=== PATIENT | female | born 1990 | race Caucasian/White ===

== ENCOUNTER → 2019-11-01 10:08 | Outpatient (CLI) | payer MEDICAID, SELFPAY ==
[2019-11-01 11:24] LABS: Basophils # 0.1 K/mm3 (0-0.2); Basophils % 0.7 % (0.1-2.0); Eosinophils # 0.2 K/mm3 (0.0-0.4); Eosinophils % 1.4 % (0.1-12.0); Hemoglobin 12.3 g/dL (12.2-16.2); Lymphocytes % 29.1 % (10-50); Mean Corpuscular HGB Conc 31.6 g/dL (31.8-35.4); Mean Corpuscular Hemoglobin 27.4 pg (27.0-31.2); Mean Corpuscular Volume 86.5 fl (81-99); Mean Platelet Volume 7.9 fl (7.4-10.4); Monocytes # 0.4 K/mm3 (0.1-1.0); Monocytes % 3.6 % (1.7-9.3); Neutrophils # 6.6 K/mm3 (1.8-7.8); Neutrophils % 65.1 % (37.0-80.0); Platelet Count 365 K/mm3 (142-424); Red Blood Count 4.51 M/mm3 (4.20-5.40); Red Cell Distribution Width 15.6 % (11.5-17.5); White Blood Count 10.2 K/mm3 (4.8-10.8)
[2019-11-01 11:33] LABS: Alanine Aminotransferase 16 U/L (12-78); Albumin Level 4.4 g/dl (3.5-5.0); Albumin/Globulin Ratio 1.6 (1.1-1.8); Alkaline Phosphatase 90 U/L (38-126); Anion Gap 10.6 mEq/L (5-15); Aspartate Amino Transferase 17 U/L (14-36); Bilirubin,Total 0.2 mg/dl (0.2-1.3); Blood Urea Nitrogen 12 mg/dl (7-17); Calcium 9.8 mg/dl (8.4-10.2); Carbon Dioxide 25 mmol/L (22.0-30.0); Chloride 107 mmol/L (98-107); Estimated Glomerular Filt Rate 100 ml/min (>60); GFR (African American) 121 ML/MIN (>60); Globulin 2.8 g/dL (1.3-3.2); Glucose 100 mg/dl (74-100); Potassium 4.6 mmoL/L (3.5-5.1); Sodium 138 mmol/L (136-145); Total Protein,Serum 7.2 g/dl (6.3-8.2)
[2019-11-01 12:04] LABS: Thyroid Stimulating Hormone 1.81 uIU/mL (0.465-4.68)
[2019-11-02 03:39] LABS: Iron 26 ug/dL (27-159); UIBC 329 ug/dL (131-425)
[2019-11-02 07:04] LABS: Iron Saturation 7 % (15-55)
[2019-11-02 08:46] LABS: Vitamin D 25 Hydroxy 17.4 ng/mL (30.0-100.0)
[2019-11-02 16:05] LABS: Vitamin B12 610 pg/mL (232-1245)
== END ==
PROVIDERS: Visit Provider Nurse Practitioner Psychiatric/Mental Health
DX: Z00.00 Encounter for general adult medical examination without abnormal findings (principal); E55.9 Vitamin D deficiency, unspecified; F32.9 Major depressive disorder, single episode, unspecified; F41.1 Generalized anxiety disorder
CPT/HCPCS: 36415; 80053; 82607; 82652; 83540; 83550; 84443; 85025

== ENCOUNTER → 2020-01-30 10:53 | Outpatient (CLI) | payer MEDICAID, SELFPAY ==
[2020-01-30 13:13] LABS: Free Thyroxine Index 2.1 ug/dL (5.93-13.13); T4 (Thyroxine) 7.4 ug/dl (5.53-11.0); Triiodothryronine (T3) Uptake 29 % (23.5-40.5)
[2020-01-31 05:38] LABS: Progesterone 7.1 ng/mL (.)
== END ==
PROVIDERS: Visit Provider Obstetrics & Gynecology
DX: Z01.419 Encounter for gynecological examination (general) (routine) without abnormal findings (principal); E04.9 Nontoxic goiter, unspecified
CPT/HCPCS: 36415; 84144; 84436; 84443; 84479

== ENCOUNTER 2020-04-03 19:08 | Emergency (ER) | payer MEDICAID, SELFPAY ==
[2020-04-03 19:31] VITALS: BP 136/85; PULSE 91; RESP 20; TEMP 36.8; O2SAT 98; BMI 34.7
--- NOTE | 2020-04-03 19:35 | HMH.EDUTC ---
[facility] [place] Clinical Impression: URI (upper respiratory infection) Qualifiers: URI type: unspecified URI Qualified Code(s): J06.9 - Acute upper respiratory infection, unspecified Disposition: Home, Self-Care Condition on Discharge: Good Instructions: Sore Throat Additional Instructions: *Monitor Temp, Over the counter Motrin or Tylenol as directed/as needed Tylenol every 4 hours and Motrin every 6 hours (as long as your family doctor has told you that you can take it) for fever or pain. and straight to ER if unable to lower temp less than 101.0 after medication given *Warm salt water gargles may help to soothe the throat *Throat Lozenges *Warm fluids like tea with honey may help to soothe the throat *Sleep elevated *Humidifier/Vaporizer Your throat swab was sent for culture. Those results are typically sent to your primary care. Be sure to follow up in 2-3 days with your family doctor/primary care physician if no improvement so they can review those result and treat if necessary. If you don?t have a primary care doctor, I recommend you get one but in the mean time, you will have to return to a walk in clinic Follow up IMMEDIATELY for new or worsening symptoms or no Noticeable improvement over the next 48-72 hours. 911 for difficulty breathing or swallowing Prescriptions: Azithromycin [Z-Noble 250mg Tab] 250 mg PO DIRECTED #6 tab Transmission Status: Pending to [facility] Referrals: Dwain Nye MD [Primary Care Provider] - As needed Time of Disposition: 19:47 Medical Decision Making - Raz Inquiry Pt receiving controlled substance: No Raz was queried for this patient: No Vital Signs: 04/03/20 19:31 Temperature 98.3 F Temperature Source Oral Pulse Rate [Radial] 91 H Respiratory Rate 20 Blood Pressure [Right Arm] 136/85 Blood Pressure Mean [Right Arm] 102 Blood Pressure Source [Right Arm] Automatic Cuff Blood Pressure Position [Right Arm] Sitting 02 Sat by Pulse Oximetry 98 Oxygen Delivery Method Room Air - Lab Data Lab results reviewed: Yes: I reviewed the patient's lab results. [facility] [place] - General Stated complaint: sore throat Time Seen by Provider: 04/03/20 19:35 Mode of Arrival: Ambulatory Source of Information: Patient Limitations: No Limitations Description of Symptoms (Recalled from Triage Doc. 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 States that for the last couple of days her throat has been hurting and continued to get worse so she came in to get it checked - Related Data Previous Rx's Medication Instructions Recorded aripiprazole 5 mg tablet 5 mg PO QHS #30 tab 03/18/20 vortioxetine 10 mg tablet 10 mg PO DAILY #30 tab 03/18/20 Azithromycin [Z-Noble 250mg Tab] 250 mg PO DIRECTED #6 tab 04/03/20 Allergies Allergy/AdvReac Type Severity Reaction Status Date / Time amoxicillin Allergy Verified 01/30/20 10:20 - Worker's Comp Is this a Worker's Comp case?: No [facility] History - Hepatitis A Screen Drug use history?: No High risk sexual behaviors?: No History of sexually transmitted infection?: No Currently employed?: No Childcare worker?: No Do you have indoor plumbing?: Yes Do you have electricity?: Yes Attestation statement:: This patient has been screened for Hepatitis A risk factors. I have reviewed the patient's past medical history: Yes Medical History: Reports:: Anxiety, Depression Other Surgeries: Yes: Appendectomy, Amputation: No Fractures: No Comment: app - Social History Smoking Status: Current lorena
[2020-04-03 19:49] LABS: UTC Strep Screen (Rapid) Negative (Negative)
[2020-04-03 19:52] VITALS: BP 136/85; PULSE 91; RESP 20; TEMP 36.8; O2SAT 98
== END 2020-04-03 19:53 | disposition home or self-care (01) ==
PROVIDERS: Emergency Provider Nurse Practitioner; PCP Emergency Medicine
DX: J06.9 Acute upper respiratory infection, unspecified (principal); F41.8 Other specified anxiety disorders; F17.210 Nicotine dependence, cigarettes, uncomplicated
CPT/HCPCS: 87880; 99201

== ENCOUNTER 2020-12-24 13:04 | Emergency (ER) | payer MEDICAID, SELFPAY ==
[2020-12-24 13:29] VITALS: RESP 16; TEMP 36.8; O2SAT 100; BMI 31.3
--- NOTE | 2020-12-24 13:37 | HMH.EDUTC ---
[facility] [place] Clinical Impression: Bronchitis Sinusitis Qualifiers: Sinusitis location: unspecified location Chronicity: acute Recurrence: non-recurrent Qualified Code(s): J01.90 - Acute sinusitis, unspecified Disposition: Xfer Inpatient Rehab Fac Condition on Discharge: Good Instructions: DI for Sinusitis, DI for Acute Bronchitis Additional Instructions: Encourage him to drink fluids Watch his temperature and give him tylenol or ibuprofen for pain/fever Give the antibiotic as prescribed. 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 GO TO THE EMERGENCY ROOM FOR ANY WORSENING OR LIFE THREATENING SYMPTOMS. Prescriptions: Brompheniramine/Pseudoephed/Dm [Bromfed Dm Cough Syrup] 5 ml PO Q6HP PRN #240 syrup PRN Reason: Cough Transmission Status: Received by [facility] predniSONE [Prednisone 20mg Tab] 20 mg PO BID 4 Days #8 tab Transmission Status: Received by [facility] Azithromycin [Z-Noble 250mg Tab*] 250 mg PO UD DOSE PK #6 tab Transmission Status: Received by [facility] Referrals: Dwain Nye MD [Primary Care Provider] - Forms: Work/School Release Time of Disposition: 14:01 Medical Decision Making - Medical Records Medical records reviewed: No: I reviewed the patient's medical records. - Raz Inquiry Pt receiving controlled substance: No Raz was queried for this patient: No Vital Signs: 12/24/20 13:29 12/24/20 14:07 Temperature 98.2 F 98.9 F Temperature Source Oral Oral Pulse Rate 95 H Respiratory Rate 16 14 Blood Pressure 112/55 L 02 Sat by Pulse Oximetry 100 Oxygen Delivery Method Room Air Room Air [facility] [place] HPI - General Stated complaint: cough,congestion,stuffy nose Time Seen by Provider: 12/24/20 13:43 Mode of Arrival: Ambulatory Source of Information: Patient Limitations: No Limitations Description of Symptoms (Recalled from Triage Doc. by RN): cough, stuffy nose, headache HEENT Symptoms (Recalled from RN notes): No Resp Symptoms (Recalled from RN notes): Yes Skin Symptoms (Recalled from RN notes): No MS Symptoms (Recalled from RN notes): No Functional Status (Recalled from RN notes): na - History of Present Illness Provider Complaint: She states that for the past 2 day she has had ear pain, sinus congestion and chest congestion. - Related Data Previous Rx's Medication Instructions Recorded fluoxetine 20 mg capsule 20 mg PO DAILY #30 cap 11/20/20 Azithromycin [Z-Noble 250mg Tab*] 250 mg PO UD DOSE PK #6 tab 12/24/20 Brompheniramine/Pseudoephed/Dm 5 ml PO Q6HP PRN #240 syrup 12/24/20 [Bromfed Dm Cough Syrup] predniSONE [Prednisone 20mg 20 mg PO BID 4 Days #8 tab 12/24/20 Tab] Allergies Allergy/AdvReac Type Severity Reaction Status Date / Time amoxicillin Allergy Verified 06/15/20 16:32 - Worker's Comp Is this a Worker's Comp case?: No [facility] History - Hepatitis A Screen Drug use history?: No High risk sexual behaviors?: No History of sexually transmitted infection?: No Currently employed?: No Childcare worker?: No Do you have indoor plumbing?: Yes Do you have electricity?: Yes Attestation statement:: This patient has been screened for Hepatitis A risk factors. I have reviewed the patient's past medical history: Yes Medical History: Reports:: Anxiety, Depression Other Surgeries: Yes: Appendectomy, Amputation: No Fractures: No Comment: 2004-appe - Social History Smoking Status: Current every day smoker Tobacco Type: cigarettes # Packs/Day (cigarettes): 1 Alcohol Intake: never Alcohol Intake Frequency:: holidays/special occasions only Substance Use Type: denies use, marijuana Occupational Status: employed Housing: house - Psychiatric History Pschychiatric History:: Reports:: Anxiety, Depression Family Hx:: Cancer, Diabetes, Heart Attack, Kidney Disease ROS Obtained: Yes All systems reviewed & no additional complaints - Constitutional Constitutional: Reports chills, Denies fever(s), Re
[2020-12-24 14:07] VITALS: BP 112/55; PULSE 95; RESP 14; TEMP 37.2; O2SAT 100
== END 2020-12-24 14:09 ==
PROVIDERS: Emergency Provider Nurse Practitioner Family; PCP Emergency Medicine
DX: J20.9 Acute bronchitis, unspecified (principal); F17.210 Nicotine dependence, cigarettes, uncomplicated; F41.8 Other specified anxiety disorders
CPT/HCPCS: 99202; G0463

== ENCOUNTER → 2021-01-15 13:49 | Outpatient (CLI) | payer MEDICAID, SELFPAY ==
[2021-01-15 13:56] LABS: Basophils % 0.5 % (0.1-2.0); Eosinophils # 0.1 K/mm3 (0.0-0.4); Eosinophils % 1.2 % (0.1-12.0); Hematocrit 38.3 % (37.0-47.0); Hemoglobin 12.4 g/dL (12.2-16.2); Lymphocytes # 2.3 K/mm3 (0.7-4.5); Lymphocytes % 34.6 % (10-50); Mean Corpuscular HGB Conc 32.2 g/dL (31.8-35.4); Mean Corpuscular Hemoglobin 29.1 pg (27.0-31.2); Mean Corpuscular Volume 90.5 fl (81-99); Mean Platelet Volume 9.3 fl (7.4-10.4); Monocytes # 0.3 K/mm3 (0.1-1.0); Neutrophils % 58.7 % (37.0-80.0); Platelet Count 328 K/mm3 (142-424); Red Blood Count 4.24 M/mm3 (4.20-5.40); Red Cell Distribution Width 13.9 % (11.5-17.5); White Blood Count 6.7 K/mm3 (4.8-10.8)
[2021-01-15 14:15] LABS: Alanine Aminotransferase 14 U/L (12-78); Albumin Level 4.5 g/dl (3.5-5.0); Albumin/Globulin Ratio 1.6 (1.1-1.8); Alkaline Phosphatase 97 U/L (38-126); Anion Gap 10.5 mEq/L (5-15); Aspartate Amino Transferase 17 U/L (14-36); Bilirubin,Total 0.3 mg/dl (0.2-1.3); Blood Urea Nitrogen 9 mg/dl (7-17); Calcium 9.6 mg/dl (8.4-10.2); Carbon Dioxide 24 mmol/L (22.0-30.0); Chloride 107 mmol/L (98-107); Chol/HDL Ratio 3.7 (1-3.5); Cholesterol 186 mg/dl (140-200); Estimated Glomerular Filt Rate 100 ml/min (>60); GFR (African American) 121 ML/MIN (>60); Globulin 2.8 g/dL (1.3-3.2); Glucose 103 mg/dl (74-100); HDL Cholesterol 50 mg/dl (40-60); Potassium 4.5 mmoL/L (3.5-5.1); Sodium 137 mmol/L (136-145); Total Protein,Serum 7.3 g/dl (6.3-8.2); Triglycerides 80 mg/dl (30-150); VLDL Cholesterol 16 mg/dL (0-40)
[2021-01-15 14:25] LABS: Direct LDL Cholesterol 105.31 mg/dL (100-129)
[2021-01-15 14:30] LABS: 25-OH Vitamin D, Total 26.1 ng/mL (30-100)
[2021-01-15 14:31] LABS: T4 (Thyroxine) 8.2 ug/dl (5.53-11.0)
== END ==
PROVIDERS: Visit Provider Nurse Practitioner Family
DX: R53.83 Other fatigue (principal); E66.9 Obesity, unspecified; E55.9 Vitamin D deficiency, unspecified; Z68.32 Body mass index [BMI] 32.0-32.9, adult
CPT/HCPCS: 80053; 80061; 82306; 84436; 84443; 85025

== ENCOUNTER 2021-07-28 09:05 | Emergency (ER) | payer MEDICAID, SELFPAY ==
[2021-07-28 09:20] VITALS: BP 143/86; PULSE 90; RESP 21; TEMP 37.1; O2SAT 98; BMI 35.5
--- NOTE | 2021-07-28 10:16 | HMH.EDUTC ---
[facility] – [place], [place] Disposition Clinical Impression: Shingles Qualifiers: Herpes zoster complications: without complications Qualified Code(s): B02.9 - Zoster without complications Disposition: Home, Self-Care Condition on Discharge: Good Instructions: Shingles, DI for Shingles, Acyclovir Additional Instructions: Take medication as prescribed Benadryl may help with itching CareNotes Shingles Aftercare Instructions Print Shingles Medically reviewed by [employer]. Last updated on Jul 12, 2021. Health Guide Disease Reference Care Notes Medication List Q & A Overview Aftercare Instructions [facility] Discharge Care Inpatient Care En Espa?ol Medicines: You may need any of the following: Antiviral medicine helps decrease symptoms and healing time. They may also decrease your risk of developing nerve pain. You will need to start taking them within 3 days of the start of symptoms to prevent nerve pain. Acetaminophen decreases pain and fever. It is available without a doctor's order. Ask how much to take and how often to take it. Follow directions. Read the labels of all other medicines you are using to see if they also contain acetaminophen, or ask your doctor or pharmacist. Acetaminophen can cause liver damage if not taken correctly. Do not use more than 4 grams (4,000 milligrams) total of acetaminophen in one day. NSAIDs , such as ibuprofen, help decrease swelling, pain, and fever. This medicine is available with or without a doctor's order. NSAIDs can cause stomach bleeding or kidney problems in certain people. If you take blood thinner medicine, always ask if NSAIDs are safe for you. Always read the medicine label and follow directions. Do not give these medicines to children under 6 months of age without direction from your child's healthcare provider. Self-care: Keep your rash clean and dry. Cover your rash with a bandage or clothing. Do not use bandages that stick to your skin. The sticky part may irritate your skin and make your rash last longer Wash your hands often Follow up with your Family Doctor Prescriptions: Acyclovir 800 mg PO 5XDAY 7 Days #35 tab Transmission Status: Pending to [facility] Referrals: Dwain Nye MD [Primary Care Provider] - As needed Forms: Work/School Release Time of Disposition: 10:30 Medical Decision Making - Raz Inquiry Pt receiving controlled substance: No Raz was queried for this patient: No Vital Signs: 11/17/21 09:20 Temperature 98.7 F Temperature Source Oral Pulse Rate [Right Brachial] 90 Respiratory Rate 21 Blood Pressure [Right Arm] 143/86 H Blood Pressure Mean [Right Arm] 105 Blood Pressure Source [Right Arm] Automatic Cuff Blood Pressure Position [Right Arm] Sitting 02 Sat by Pulse Oximetry 98 Oxygen Delivery Method Room Air [facility] [place], [place] HPI - General Stated complaint: possible shingles Time Seen by Provider: 07/28/21 10:16 Mode of Arrival: Ambulatory Source of Information: Patient Limitations: No Limitations Description of Symptoms (Recalled from Triage Doc. by RN): PATIENT C/O PAIN RASH TO BOTTOM SINCE MONDAY HEENT Symptoms (Recalled from RN notes): No Resp Symptoms (Recalled from RN notes): No Skin Symptoms (Recalled from RN notes): Yes MS Symptoms (Recalled from RN notes): No Functional Status (Recalled from RN notes): WNL - Related Data Home Medications Medication Instructions Recorded Confirmed Cholecalciferol (Vitamin D3) 1,250 mcg PO WEEKLY 07/28/21 07/28/21 [Dialyvite Vitamin D3 Max] Fluoxetine HCl [Prozac] 20 mg PO DAILY 07/28/21 07/28/21 Previous Rx's Medication Instructions Recorded Acyclovir 800 mg PO 5XDAY 7 Days #35 tab 07/28/21 Allergies Allergy/AdvReac Type Severity Reaction Status Date / Time amoxicillin Allergy Verified 05/13/21 10:14 - Worker's Comp Is this a Worker's Comp case?: No [facility] History - Hepatitis A Screen Drug use history?: No High risk sexual behaviors?:
[2021-07-28 10:36] VITALS: BP 143/86; PULSE 90; RESP 21; TEMP 37.1; O2SAT 98
== END 2021-07-28 10:45 | disposition home or self-care (01) ==
PROVIDERS: Emergency Provider Nurse Practitioner; PCP Emergency Medicine
DX: B02.9 Zoster without complications (principal); F17.210 Nicotine dependence, cigarettes, uncomplicated
CPT/HCPCS: 99202; G0463

== ENCOUNTER → 2021-08-11 07:49 | Outpatient (CLI) | payer MEDICAID, SELFPAY | PROVIDERS: Visit Provider Surgery | DX: Z20.822 Contact with and (suspected) exposure to COVID-19 (principal); Z01.812 Encounter for preprocedural laboratory examination | CPT/HCPCS: C9803; U0003; U0005 ==

== ENCOUNTER 2021-08-12 09:30 | Day surgery (SDC) | payer MEDICAID, SELFPAY ==
[2021-08-09 12:55] VITALS: BMI 35.5
[2021-08-12 10:00] VITALS: BP 127/59; PULSE 72; RESP 18; TEMP 36.8; O2SAT 97
--- NOTE | 2021-08-12 10:01 | HMH.ANESCL ---
[facility] Anesthesia Checklist - Patient Identification Patient Identification: Arm Band - Structural Data Admitted From: Home Planned Operative Procedure/s: EGD Consent for Planned Operative Procedure(s) Verified: Yes - NPO Status Verified Time NPO: 00:00 - Airway Assessment C-Spine Mobility Assessed: Yes TMJ Mobility Assessed: Yes Dentition: Good Dentition - Neurological Assessment Level of Consciousness: Awake Hx Seizures: No Numbness or tingling in extremities: No - Anesthesia Plan Anesthesia Risk discussed: Yes Anesthesia Plan: Verified ASA Class: II Anesthesia Type: MAC [facility] History I have reviewed the patient's past medical history: Yes Medical History: Reports:: Anxiety, Depression Denies:: Cancer, Diabetes Mellitus Type 1, Diabetes Mellitus Type 2, Internal Pacemaker, MRSA *Have you ever received a pneumonia vaccine?: No *Have you received a flu vaccine this season?: Yes Anesthesia experience/problems:: None Other Surgeries: Yes: Appendectomy, . No: Pacemaker Amputation: No Fractures: No - *Social History Last grade of school completed: High school graduate Smoking Status: Current every day smoker Tobacco Type: cigarettes # Packs/Day (cigarettes): 1 Alcohol Intake: never Alcohol Intake Frequency:: holidays/special occasions only Substance Use Type: denies use *Occupational Status:: other Housing: house Household Members: spouse *Travel in the last 8 weeks: None - Psychiatric History Pschychiatric History:: Reports:: Anxiety, Depression Family Hx:: Cancer, Diabetes, Heart Attack, Kidney Disease
[2021-08-12 10:47] LABS: HCG Qualitative, Serum Negative (Negative)
[2021-08-12 11:00] VITALS: O2SAT 97
[2021-08-12 11:17] VITALS: BP 106/52; PULSE 52; RESP 18; TEMP 36.8; O2SAT 90
--- NOTE | 2021-08-12 11:17 | HMH.SCOPE ---
- Procedure: Date: 08/12/21 Patient Date of :: 1990 Procedure Performed:: Esophagogastroduodenoscopy with biopsy Indications:: Heartburn/reflux Performing Provider:: Keaton Cox MD Referring Provider:: . Sedation:: Monitored anesthesia care Procedure:: After informed consent was obtained the patient was taken to the endoscopy suite. Sedation ensued after the patient was transferred to the left lateral decubitus position. Pulse, blood pressure, and oxygen saturation were monitored throughout the procedure. The endoscope was advanced beyond the duodenal bulb. Retroflexion within the gastric lumen was accomplished. The gastroscope was carefully removed and the patient was transferred to recovery in stable condition. Please see findings and specimens below for detail. Findings:: Gastroesophageal junction at 40 cm Mild patchy gastritis Specimens:: Antral biopsy Recommendations:: Follow-up pathology Proton pump inhibition Complications:: No immediate Estimated blood obtained (mL): 1
[2021-08-12 11:27] VITALS: BP 112/73; PULSE 52; RESP 18; O2SAT 94
[2021-08-12 11:37] VITALS: BP 130/59; PULSE 55; RESP 16; O2SAT 99
[2021-08-12 11:47] VITALS: BP 127/62; PULSE 58; RESP 16; O2SAT 100
== END 2021-08-12 11:47 | disposition home or self-care (01) ==
PROVIDERS: PCP Nurse Practitioner Family; Visit Provider Surgery
PROC: 0DJ08ZZ Inspection of Upper Intestinal Tract, Via Natural or Artificial Opening Endoscopic (ICD-10-PCS; CPT 43235; principal; 2021-08-12 13:30)
DX: K29.60 Other gastritis without bleeding (principal); F41.9 Anxiety disorder, unspecified; F32.A Depression, unspecified; Z72.0 Tobacco use; Z80.9 Family history of malignant neoplasm, unspecified; Z83.3 Family history of diabetes mellitus; Z82.3 Family history of stroke; Z84.1 Family history of disorders of kidney and ureter; Z88.1 Allergy status to other antibiotic agents; Z79.899 Other long term (current) drug therapy
CPT/HCPCS: 43239; 84703; J2704

== ENCOUNTER → 2021-09-20 09:44 | Outpatient (CLI) | payer MEDICAID, SELFPAY ==
--- NOTE | 2021-09-20 09:44 | NM_ITS ---
FINAL REPORT TECHNIQUE: Millicuries of technetium 99m sulfur colloid was ingested with eggs. CLINICAL HISTORY: ABD PAIN, NAUSEA, HX OF EATING DISORDER FINDINGS: GASTRIC EMPTYING SCAN Static images show normal emptying of the stomach into the small bowel. Based on the time activity curve, the estimated linear fit half-emptying time is 109 minutes. IMPRESSION: Gastric emptying time at the upper limits of normal. Reviewed, Interpreted and Dictated by Jose Murguia III, MD Transcribed by Robi Baeza Authenticated by Jose Murguia III, MD on 09/20/2021 04:00:53 PM [facility]
== END ==
PROVIDERS: PCP Nurse Practitioner Family; Visit Provider Surgery
DX: R13.10 Dysphagia, unspecified (principal)
CPT/HCPCS: 78264; A9541

== ENCOUNTER 2021-11-02 18:22 | Emergency (ER) | payer MEDICAID, SELFPAY ==
[2021-11-02 18:46] VITALS: BP 136/69; PULSE 67; RESP 18; TEMP 37.2; O2SAT 96; BMI 33.6
--- NOTE | 2021-11-02 18:52 | HMH.EDUTC ---
[facility] – [place] Disposition Clinical Impression: COVID-19, Asthma Otitis media Qualifiers: Otitis media type: suppurative Chronicity: acute Laterality: bilateral Recurrence: non-recurrent Spontaneous tympanic membrane rupture: without spontaneous rupture Qualified Code(s): H66.003 - Acute suppurative otitis media without spontaneous rupture of ear drum, bilateral Disposition: Home, Self-Care Condition on Discharge: Good Instructions: DI for COVID-19 (Suspected or Confirmed ), Preventing the Spread of Coronavirus Discharge Instructions Additional Instructions: Drink plenty of fluids. Take tylenol or ibuprofen for pain or fever. Take the medications as directed. Follow up with your regular doctor. GO TO THE ER FOR ANY WORSENING SYMPTOMS The cough medication (promethazine dm) will make you drowsy, so don't drive or operate heavy machinery after taking it. Prescriptions: Albuterol Sulfate [Albuterol Sulfate Hfa] 2 puffs IH Q6HP PRN 30 Days #1 each PRN Reason: Shortness Of Breath Transmission Status: Received by [facility] Promethazine/Dextromethorphan [Promethazine-Dm Syrup] 5 ml PO Q6HP PRN #240 ml PRN Reason: Cough Transmission Status: Received by [facility] predniSONE [Prednisone 20mg Tab] 20 mg PO BID 5 Days #10 tab Transmission Status: Received by [facility] Azithromycin [Z-Noble 250mg Tab*] 250 mg PO UD DOSE PK #6 tab Transmission Status: Received by [facility] Referrals: Polina Brantley APRN [Primary Care Provider] - Forms: Work/School Release Time of Disposition: 20:30 Medical Decision Making - Medical Records Medical records reviewed: No: I reviewed the patient's medical records. - Raz Inquiry Pt receiving controlled substance: No Vital Signs: 11/02/21 18:46 11/02/21 20:44 Temperature 99 F 99 F Temperature Source Oral Pulse Rate 67 Pulse Rate [Left] 67 Respiratory Rate 18 18 Blood Pressure 136/69 Blood Pressure [Right Arm] 136/69 Blood Pressure Mean [Right Arm] 91 02 Sat by Pulse Oximetry 96 - Lab Data Lab results reviewed: Yes: I reviewed the patient's lab results. Lab Results 11/02/21 18:55: Strep Scn Rapid Clinic Negative Orders (Tests/Meds): ORDERS Category Date Time Status Strep Screen Confirmation Stat Micro 11/02/21 18:55 Received [facility] [place] HPI - General Stated complaint: covid type symtoms/bilateral ear ache Time Seen by Provider: 11/02/21 18:52 - History of Present Illness Provider Complaint: She was diagnosed with covid-19 5 days ago. She has continued to feel bad. She denies significant shortness of breath, but she is having nonproductive cough, chest tightness, body ache and severe fatigue still. - Related Data Home Medications Medication Instructions Recorded Confirmed Cholecalciferol (Vitamin D3) 1,250 mcg PO DAILY 07/28/21 09/16/21 [Dialyvite Vitamin D3 Max] Lubiprostone [Amitiza] 24 mcg PO BID 08/12/21 09/16/21 prenat.vits,juan r,dja-ueeu-gfmxe 1 tab PO DAILY 09/16/21 09/16/21 Previous Rx's Medication Instructions Recorded buspirone 10 mg tablet 10 mg PO BID #60 tab 10/07/21 fluoxetine 20 mg capsule 20 mg PO DAILY #30 cap 10/07/21 lorazepam 0.5 mg tablet 0.5 mg PO BID PRN #7 tab 10/07/21 Albuterol Sulfate [Albuterol 2 puffs IH Q6HP PRN 30 Days #1 each 11/02/21 Sulfate Hfa] Azithromycin [Z-Noble 250mg Tab*] 250 mg PO UD DOSE PK #6 tab 11/02/21 Promethazine/Dextromethorphan 5 ml PO Q6HP PRN #240 ml 11/02/21 [Promethazine-Dm Syrup] predniSONE [Prednisone 20mg 20 mg PO BID 5 Days #10 tab 11/02/21 Tab] Allergies Allergy/AdvReac Type Severity Reaction Status Date / Time amoxicillin Allergy Verified 09/16/21 08:36 [facility] History - Hepatitis A Screen Attestation statement:: This patient has been screened for Hepatitis A risk factors. I have reviewed the patient's past medical history: Yes Medical History: Reports:: Anxiety, Depression, Heart Murmur Den
[2021-11-02 19:12] LABS: UTC Strep Screen (Rapid) Negative (Negative)
[2021-11-02 20:44] VITALS: BP 136/69; PULSE 67; RESP 18; TEMP 37.2
== END 2021-11-02 20:45 | disposition home or self-care (01) ==
PROVIDERS: Emergency Provider Nurse Practitioner Family; PCP Nurse Practitioner Family
DX: U07.1 COVID-19 (principal); H66.003 Acute suppurative otitis media without spontaneous rupture of ear drum, bilateral
CPT/HCPCS: 87880; 99202; G0463

== ENCOUNTER 2021-11-17 15:59 | Emergency (ER) | payer MEDICAID, SELFPAY ==
[2021-11-17 18:02] VITALS: BP 140/70; PULSE 110; RESP 19; TEMP 39.6; O2SAT 98; BMI 32.8
[2021-11-17 18:09] LABS: Adenovirus,PCR Not Detected (NotDetected); Bordetella Pertussis Not Detected (NotDetected); Chlamydophila Pneumoniae, PCR Not Detected (NotDetected); Coronavirus 19, PCR Not Detected (NotDetected); Coronavirus 229E Not Detected (NotDetected); Coronavirus NL63 Not Detected (NotDetected); Coronavirus OC43 Not Detected (NotDetected); Coronovirus HKU1,PCR Not Detected (NotDetected); Human Metapneumovirus Not Detected (NotDetected); Influenza A, PCR Not Detected (NotDetected); Influenza AH1, 2009 Not Detected (NotDetected); Influenza AH1, PCR Not Detected (NotDetected); Influenza AH3,PCR Not Detected (NotDetected); Influenza B, PCR Not Detected (NotDetected); Mycoplasma Pneumoniae, PCR Not Detected (NotDetected); Parainfluenza 1, PCR Not Detected (NotDetected); Parainfluenza 2, PCR Not Detected (NotDetected); Parainfluenza 3, PCR Not Detected (NotDetected); Parainfluenza 4, PCR Not Detected (NotDetected); Respiratory Syncytial Virus Not Detected (NotDetected); Rhinovirus/Enterovirus Not Detected (NotDetected)
[2021-11-17 18:14] LABS: UTC Strep Screen (Rapid) Positive (Negative)
--- NOTE | 2021-11-17 18:18 | HMH.EDUTC ---
[facility] [place]ression: Strep throat Disposition: Home, Self-Care Condition on Discharge: Good Instructions: Strep Throat, DI for Strep Throat Additional Instructions: Drink plenty of fluids. Take tylenol or ibuprofen for pain or fever. Take the medications as directed. Follow up with your regular doctor. GO TO THE ER FOR ANY WORSENING SYMPTOMS Throw your tooth brush away and get a new one. Prescriptions: Brompheniramine/Pseudoephed/Dm [Bromfed Dm Cough Syrup] 5 ml PO Q6HP PRN #240 ml PRN Reason: Cough Transmission Status: Received by [facility] Ondansetron [Zofran 4mg ODT] 4 mg PO Q8HP PRN #20 tab PRN Reason: Nausea Transmission Status: Received by [facility] methylPREDNISolone [Medrol] 4 mg PO DIRECTED 6 Days #21 packet Transmission Status: Received by [facility] Cefdinir [Omnicef 300mg Capsule] 300 mg PO BID #20 cap Transmission Status: Received by [facility] Referrals: Polina Brantley APRN [Primary Care Provider] - Forms: Work/School Release Time of Disposition: 18:38 Medical Decision Making - Medical Records Medical records reviewed: No: I reviewed the patient's medical records. - Raz Inquiry Pt receiving controlled substance: No Vital Signs: 11/17/21 18:02 11/17/21 18:54 Temperature 103.3 F H 100.9 F H Temperature Source Oral Pulse Rate 110 H Pulse Rate [Right Radial] 110 H Respiratory Rate 19 19 Blood Pressure 140/70 Blood Pressure [Right Arm] 140/70 Blood Pressure Mean [Right Arm] 93 Blood Pressure Source [Right Arm] Automatic Cuff Blood Pressure Position [Right Arm] Sitting 02 Sat by Pulse Oximetry 98 Oxygen Delivery Method Room Air - Lab Data Lab results reviewed: Yes: I reviewed the patient's lab results. Lab Results 11/17/21 17:20: Chlamy pneumoniae PCR Not detected, Adenovirus (PCR) Not detected, B. pertussis DNA (PCR) Not detected, Coronavirus OC43 (PCR) Not detected, Coronavirus HKU1 (PCR) Not detected, Coronavirus 229E (PCR) Not detected, SARS-CoV-2 (PCR) Not detected, Coronavirus NL63 (PCR) Not detected, Human Metapneumovir PCR Not detected, Influenza A (H1) PCR Not detected, Influ A (H1N1/09) PCR Not detected, Influenza A (H3) PCR Not detected, Influenza Type A (PCR) Not detected, Influenza Type B (PCR) Not detected, M. pneumoniae (PCR) Not detected, Parainfluenza 1 (PCR) Not detected, Parainfluenza 2 (PCR) Not detected, Parainfluenza 3 (PCR) Not detected, Parainfluenza 4 (PCR) Not detected, RSV (PCR) Not detected, Entero/Rhino (PCR) Not detected 11/17/21 18:05: Strep Scn Rapid Clinic Positive A Orders (Tests/Meds): ED MEDICATIONS Discontinued Medications Generic Name Dose Route Start Last Admin Trade Name Freq PRN Reason Stop Dose Admin Acetaminophen 650 mg 11/17/21 18:07 11/17/21 18:11 Acetaminophen 325mg Tab PO 11/17/21 18:08 650 mg ONCE ONE Administration Cefdinir 300 mg 11/18/21 18:31 Cefdinir 300mg Capsule PO 11/18/21 18:32 ONCE ONE Cefdinir 300 mg 11/18/21 18:47 Cefdinir 300mg Capsule PO 11/18/21 18:48 ONCE ONE Cefdinir 300 mg 11/17/21 18:50 11/17/21 18:51 Cefdinir 300mg Capsule PO 11/17/21 18:51 300 mg BID ONE Administration Ibuprofen 600 mg 11/17/21 18:07 11/17/21 18:11 Ibuprofen 600 Mg Tablet PO 11/17/21 18:08 600 mg ONCE ONE Administration Ondansetron HCl 8 mg 11/17/21 18:31 11/17/21 18:42 Ondansetron 4mg Odt SL 11/17/21 18:32 8 mg ONCE ONE Administration [facility] [place] - General Stated complaint: sore throat, dizzy, sob, h/a, congestion Time Seen by Provider: 11/17/21 18:18 Mode of Arrival: Ambulatory Source of Information: Patient Limitations: No Limitations Description of Symptoms (Recalled from Triage Doc. by RN): C/O sore throat, BRIGGS, runny nose, dizziness HEENT Symptoms (Recalled from RN notes): Yes (Sore throat, BRIGGS, runny nose) Resp Symptoms (Recalled from RN notes):
[2021-11-17 18:54] VITALS: BP 140/70; PULSE 110; RESP 19; TEMP 38.3; O2SAT 98
== END 2021-11-17 18:56 | disposition home or self-care (01) ==
PROVIDERS: Emergency Provider Nurse Practitioner Family; PCP Nurse Practitioner Family
DX: J02.0 Streptococcal pharyngitis (principal)
CPT/HCPCS: 87581; 87632; 87798; 87880; 99212; C9803; G0463; U0003; U0005

== ENCOUNTER 2022-02-16 17:15 | Emergency (ER) | payer MEDICAID, SELFPAY ==
[2022-02-16 17:54] VITALS: BP 113/57; PULSE 85; RESP 17; TEMP 36.8; O2SAT 98; BMI 33.6
--- NOTE | 2022-02-16 17:59 | HMH.EDUTC ---
[facility] [place] Disposition Clinical Impression: Viral syndrome, Gastroenteritis Disposition: Home, Self-Care Condition on Discharge: Good Instructions: DI for Viral Gastroenteritis -- Adult, DI for COVID-19 (Suspected or Confirmed ), Preventing the Spread of Coronavirus Discharge Instructions Additional Instructions: Drink plenty of fluids. Take tylenol or ibuprofen for pain or fever. Take the medications as directed. Follow up with your regular doctor. GO TO THE ER FOR ANY WORSENING SYMPTOMS Quarantine until you know the results of your covid-19 test. Notify your school or workplace of your results and follow their instructions regarding return to work/school. Prescriptions: Brompheniramine/Pseudoephed/Dm [Bromfed Dm Cough Syrup] 5 ml PO Q6HP PRN #240 ml PRN Reason: Cough Transmission Status: Received by [id number] Ondansetron [Zofran 4mg ODT] 4 mg PO Q8HP PRN #20 tab PRN Reason: Nausea Transmission Status: Received by [id number] Referrals: Polina Brantley APRN [Primary Care Provider] - Forms: Work/School Release Time of Disposition: 18:21 Medical Decision Making - Medical Records Medical records reviewed: No: I reviewed the patient's medical records. - Raz Inquiry Pt receiving controlled substance: No Vital Signs: 02/16/22 17:54 02/16/22 18:17 Temperature 98.2 F 98.2 F Temperature Source Oral Pulse Rate 85 Pulse Rate [Left Radial] 85 Respiratory Rate 17 17 Blood Pressure 113/57 L Blood Pressure [Right Arm] 113/57 L Blood Pressure Mean [Right Arm] 75 02 Sat by Pulse Oximetry 98 - Lab Data Lab results reviewed: Yes: I reviewed the patient's lab results. Lab Results 02/16/22 18:25: Chlamy pneumoniae PCR Not detected, Adenovirus (PCR) Not detected, B. pertussis DNA (PCR) Not detected, Coronavirus OC43 (PCR) Not detected, Coronavirus HKU1 (PCR) Not detected, Coronavirus 229E (PCR) Not detected, SARS-CoV-2 (PCR) Not detected, Coronavirus NL63 (PCR) Not detected, Human Metapneumovir PCR Not detected, Influenza A (H1) PCR Not detected, Influ A (H1N1/09) PCR Not detected, Influenza A (H3) PCR Not detected, Influenza Type A (PCR) Not detected, Influenza Type B (PCR) Not detected, M. pneumoniae (PCR) Not detected, Parainfluenza 1 (PCR) Not detected, Parainfluenza 2 (PCR) Not detected, Parainfluenza 3 (PCR) Not detected, Parainfluenza 4 (PCR) Not detected, RSV (PCR) Not detected, Entero/Rhino (PCR) Detected A [facility] [place] HPI - General Stated complaint: Diarrhea,Nausa, Head congetion Time Seen by Provider: 02/16/22 18:00 Description of Symptoms (Recalled from Triage Doc. by RN): patient comes in with complaints of head cold, nausea vomitting, diarrhea. patient states symptoms began yesterday HEENT Symptoms (Recalled from RN notes): Yes Resp Symptoms (Recalled from RN notes): No Skin Symptoms (Recalled from RN notes): No MS Symptoms (Recalled from RN notes): No Functional Status (Recalled from RN notes): wnl - History of Present Illness Provider Complaint: She states that since yesterday she has had n/v/d, scratchy sore throat, and sinus congestion. She denies any fever, but she has had body aches and chills. - Related Data Home Medications Medication Instructions Recorded Confirmed Cholecalciferol (Vitamin D3) 1,250 mcg PO DAILY 07/28/21 09/16/21 [Dialyvite Vitamin D3 Max] Lubiprostone [Amitiza] 24 mcg PO BID 08/12/21 09/16/21 prenat.vits,juan r,vua-ijvc-zodei 1 tab PO DAILY 09/16/21 09/16/21 Previous Rx's Medication Instructions Recorded Albuterol Sulfate [Albuterol 2 puffs IH Q6HP PRN 30 Days #1 each 11/02/21 Sulfate Hfa] buspirone 10 mg tablet 10 mg PO BID #60 tab 12/22/21 fluoxetine 20 mg capsule 20 mg PO DAILY #30 cap 12/22/21 Brompheniramine/Pseudoephed/Dm 5 ml PO Q6HP PRN #240 ml 02/16/22 [Bromfed Dm Cough Syrup] Ondansetron [Zofran 4mg ODT] 4 mg PO Q8HP PRN #20 tab 02/16/22 Allergies Allergy/AdvReac Type Severity React
[2022-02-16 18:17] VITALS: BP 113/57; PULSE 85; RESP 17; TEMP 36.8
[2022-02-16 18:45] LABS: Adenovirus,PCR Not Detected (NotDetected); Bordetella Pertussis Not Detected (NotDetected); Chlamydophila Pneumoniae, PCR Not Detected (NotDetected); Coronavirus 19, PCR Not Detected (NotDetected); Coronavirus 229E Not Detected (NotDetected); Coronavirus NL63 Not Detected (NotDetected); Coronavirus OC43 Not Detected (NotDetected); Coronovirus HKU1,PCR Not Detected (NotDetected); Human Metapneumovirus Not Detected (NotDetected); Influenza A, PCR Not Detected (NotDetected); Influenza AH1, 2009 Not Detected (NotDetected); Influenza AH1, PCR Not Detected (NotDetected); Influenza AH3,PCR Not Detected (NotDetected); Influenza B, PCR Not Detected (NotDetected); Mycoplasma Pneumoniae, PCR Not Detected (NotDetected); Parainfluenza 1, PCR Not Detected (NotDetected); Parainfluenza 2, PCR Not Detected (NotDetected); Parainfluenza 3, PCR Not Detected (NotDetected); Parainfluenza 4, PCR Not Detected (NotDetected); Respiratory Syncytial Virus Not Detected (NotDetected)
[2022-02-16 20:18] LABS: Rhinovirus/Enterovirus Detected (NotDetected)
== END 2022-02-16 18:39 | disposition home or self-care (01) ==
PROVIDERS: Emergency Provider Nurse Practitioner Family; PCP Nurse Practitioner Family
DX: A08.4 Viral intestinal infection, unspecified (principal); R09.81 Nasal congestion; F17.210 Nicotine dependence, cigarettes, uncomplicated
CPT/HCPCS: 87581; 87632; 87798; 99212; C9803; G0463; U0003; U0005

== ENCOUNTER → 2022-04-04 12:54 | Outpatient (CLI) | payer MEDICAID, SELFPAY ==
[2022-04-04 13:43] LABS: HCG,Quantitative 4508 mIU/ml (0-5.42)
== END ==
PROVIDERS: PCP Nurse Practitioner Family; Visit Provider Obstetrics & Gynecology
DX: N92.6 Irregular menstruation, unspecified (principal)
CPT/HCPCS: 36415; 84702

== ENCOUNTER → 2022-04-06 07:11 | Outpatient (CLI) | payer MEDICAID, SELFPAY ==
[2022-04-06 08:33] LABS: HCG,Quantitative 7544 mIU/ml (0-5.42)
== END ==
PROVIDERS: PCP Nurse Practitioner Family; Visit Provider Obstetrics & Gynecology
DX: N92.6 Irregular menstruation, unspecified (principal)
CPT/HCPCS: 36415; 84702

== ENCOUNTER 2022-04-18 18:59 | Emergency (ER) | payer MEDICAID, SELFPAY ==
--- NOTE | 2022-04-18 19:18 | ECG_ITS ---
APPROVED REPORT Exam: Resting ECG HR:83 bpm ECG Measurements Heart Rate 83 AXES DC 134 P -24 QRSd 88 QRS 14 QT 332 T 37 QTc 372 Conclusion SINUS RHYTHM NORMAL ECG UNCONFIRMED REPORT Electronically signed by : Jeremy Godwin MD 04/19/2022 19:53:33
[2022-04-18 19:38] LABS: Microscopic, Urine URINE MICROSCOPIC (MICROSCOPIC)
[2022-04-18 19:39] LABS: Appearance,Urine SL CLOUDY (Clear); Bilirubin,Urine Negative (Negative); Blood, Urine Negative (Negative); Color,Urine YELLOW (Yellow); Glucose,Urine (UA) Negative (Negative); Ketones,Urine Negative (Negative); Leukocyte Esterase,Urine Negative (Negative); Nitrate,Urine Negative (Negative); PH,Urine 6.5 (5.0-8.5); Protein,Urine Negative (Negative); Specific Gravity, Urine 1.015 (1.005-1.030); Urobilinogen,Urine 0.2 EU/dl (0.2)
[2022-04-18 19:43] LABS: Basophils # 0.1 K/mm3 (0-0.2); Basophils % 0.7 % (0.1-2.0); Eosinophils # 0.2 K/mm3 (0.0-0.4); Eosinophils % 1.3 % (0.1-12.0); Hematocrit 37.8 % (37.0-47.0); Hemoglobin 11.9 g/dL (12.2-16.2); Lymphocytes # 3.6 K/mm3 (0.7-4.5); Mean Corpuscular HGB Conc 31.6 g/dL (31.8-35.4); Mean Corpuscular Hemoglobin 28.9 pg (27.0-31.2); Mean Corpuscular Volume 91.6 fl (81-99); Mean Platelet Volume 8.2 fl (7.4-10.4); Monocytes # 0.6 K/mm3 (0.1-1.0); Monocytes % 4.6 % (1.7-9.3); Neutrophils # 8.4 K/mm3 (1.8-7.8); Neutrophils % 65.4 % (37.0-80.0); Platelet Count 332 K/mm3 (142-424); Red Blood Count 4.13 M/mm3 (4.20-5.40); Red Cell Distribution Width 14.7 % (11.5-17.5); White Blood Count 12.8 K/mm3 (4.8-10.8)
[2022-04-18 19:44] VITALS: BP 123/83; PULSE 86; RESP 16; TEMP 36.8; O2SAT 96; BMI 36.3
--- NOTE | 2022-04-18 19:51 | HMH.EDGENADL ---
ED Disposition Condition on Discharge: Good - Critical Care Critical Care Time: No <ChrisjoselynVincent smith - Last Filed: 04/18/22 19:51> <Dwain Nye - Last Filed: 04/18/22 20:53> Clinical Impression: Palpitations Qualifiers: Weeks of gestation: 8 weeks Qualified Code(s): Z3A.08 - 8 weeks gestation of Disposition: Home, Self-Care Instructions: DI for Palpitations Additional Instructions: call ob this week Referrals: Polina Brantley APRN [Primary Care Provider] - Arpan Irby MD [Staff Physician] - Attestation: On 04/18/22, the high probability of a clinically significant, sudden or life threatening deterioration of the following system(s) required my full and direct attention, intervention and personal management. The time I documented below is in addition to time spent performing reported procedures but includes the following listed in this critical care notation. Medical Decision Making - Medical Records Medical records reviewed: Yes: I reviewed the patient's medical records. - Raz Inquiry Pt receiving controlled substance: No - Lab Data Result diagrams: 04/18/22 19:23 - ECG Data Tracing #1 I reviewed this ECG and interpreted as documented below: ECG initial impression date: 04/18/22 ECG initial impression time: 19:18 ECG normal with no acute: arrhythmias, ischemia, conduction abnormalities, chamber hypertrophy Normal Sinus Rhythm: Yes <ChrisjoselynVincent smith - Last Filed: 04/18/22 19:51> - Lab Data Lab results reviewed: Yes: I reviewed the patient's lab results. Result diagrams: 04/18/22 19:23 04/18/22 19:23 <Dwain Nye - Last Filed: 04/18/22 20:53> Vital Signs: 04/18/22 19:44 Temperature 98.2 F Temperature Source Oral Pulse Rate [Apical] 86 Respiratory Rate 16 Blood Pressure [Right Arm] 123/83 Blood Pressure Mean [Right Arm] 96 Blood Pressure Source [Right Arm] Automatic Cuff Blood Pressure Position [Right Arm] Sitting 02 Sat by Pulse Oximetry 96 Oxygen Delivery Method Room Air - Lab Data Lab Results 04/18/22 19:23: WBC 12.8 H, RBC 4.13 L, Hgb 11.9 L, Hct 37.8, MCV 91.6, MCH 28.9, MCHC 31.6 L, RDW 14.7, Plt Count 332, MPV 8.2, Neut % (Auto) 65.4, Lymph % (Auto) 28.0, [place] % (Auto) 4.6, Eos % (Auto) 1.3, Baso % (Auto) 0.7, Neut # (Auto) 8.4 H, Lymph # (Auto) 3.6, [place] # (Auto) 0.6, Eos # (Auto) 0.2, Baso # (Auto) 0.1 04/18/22 19:23: Sodium 135 L, Potassium 3.6, Chloride 106, Carbon Dioxide 21 L, Anion Gap 11.6, BUN 7, Creatinine 0.50 L, Estimated Creat Clear 267, Estimated GFR 146, Est GFR ( Amer) 177, Glucose 108 H, Calcium 8.9, Total Bilirubin < 0.1 L, AST 24, ALT 25, Alkaline Phosphatase 89, Troponin I < 0.01, Total Protein 6.9, Albumin 3.9, Globulin 3.0, Albumin/Globulin Ratio 1.3, Lipase 34, HCG, Quant [id number] H 04/18/22 19:28: Urine Color Yellow, Urine Appearance Sl cloudy, Urine pH 6.5, Ur Specific [place] 1.015, Urine Protein Negative, Urine Glucose (UA) Negative, Urine Ketones Negative, Urine Blood Negative, Urine Nitrate Negative, Urine Bilirubin Negative, Urine Urobilinogen 0.2, Ur Leukocyte Esterase Negative, Urine RBC Occasional, Urine WBC 3-5, Ur Squamous Epith Cells 10-20, Urine Bacteria 4+ Orders (Tests/Meds): ED MEDICATIONS Generic Name Dose Route Start Last Admin Trade Name Freq PRN Reason Stop Dose Admin Sodium Chloride 1,000 mls @ 999 mls/hr 04/18/22 19:15 04/18/22 19:50 Sod Chlor 0.9% 1000ml Bag IV 04/18/22 20:15 999 mls/hr .Q1H1M LYNN Administration Discontinued Medications Generic Name Dose Route Start Last Admin Trade Name Freq PRN Reason Stop Dose Admin Diphenhydramine HCl 25 mg 04/18/22 19:13 04/18/22 19:50 Diphenhydramine 50mg/Ml Vial IV 04/18/22 19:14 25 mg ONCE ONE Administration ORDERS Category Date Time Status Rapid PCR Covid and Flu A/B Stat Lab 04/18/22 20:36 Ordered T4 (Thyroxine) Stat Lab 04/18/22 19:23 Received Thyroid Stimulating Hormone Stat Lab 0
[2022-04-18 19:55] LABS: Alanine Aminotransferase 25 U/L (12-78); Albumin Level 3.9 g/dl (3.5-5.0); Albumin/Globulin Ratio 1.3 (1.1-1.8); Alkaline Phosphatase 89 U/L (38-126); Anion Gap 11.6 mEq/L (5-15); Aspartate Amino Transferase 24 U/L (14-36); Blood Urea Nitrogen 7 mg/dl (7-17); Calcium 8.9 mg/dl (8.4-10.2); Carbon Dioxide 21 mmol/L (22.0-30.0); Chloride 106 mmol/L (98-107); Creatinine Clearance Estimated 267 mL/min (50-200); Estimated Glomerular Filt Rate 146 ml/min (>60); GFR (African American) 177 ML/MIN (>60); Glucose 108 mg/dl (74-100); Lipase 34 U/L (23-300); Potassium 3.6 mmoL/L (3.5-5.1); Sodium 135 mmol/L (136-145); Total Protein,Serum 6.9 g/dl (6.3-8.2)
[2022-04-18 19:57] LABS: Bacteria,Urine 4+ /lpf; RBC,Urine Occasional #/hpf (0-3)
[2022-04-18 19:58] LABS: Bilirubin,Total < 0.1 mg/dl (0.2-1.3)
[2022-04-18 20:10] LABS: Troponin I < 0.01 ng/ml (0.00-0.034)
[2022-04-18 20:53] VITALS: BP 120/80; PULSE 82; RESP 18; TEMP 36.8; O2SAT 99
[2022-04-18 21:18] LABS: T4 (Thyroxine) 10.2 ug/dl (5.53-11.0)
[2022-04-18 21:30] LABS: Troponin I < 0.01 ng/ml (0.00-0.034)
[2022-04-18 21:32] LABS: Thyroid Stimulating Hormone 3.79 uIU/mL (0.465-4.68)
[2022-04-18 22:52] LABS: Coronavirus 19, PCR Not Detected (NotDetected); Influenza A, PCR Not Detected (NotDetected); Influenza B, PCR Not Detected (NotDetected)
== END 2022-04-18 21:42 | disposition home or self-care (01) ==
PROVIDERS: Emergency Medicine; Emergency Provider Emergency Medicine; PCP Nurse Practitioner Family
DX: O99.419 Diseases of the circulatory system complicating pregnancy, unspecified trimester (principal); R00.2 Palpitations; O99.411 Diseases of the circulatory system complicating pregnancy, first trimester; I49.8 Other specified cardiac arrhythmias; O21.9 Vomiting of pregnancy, unspecified; O26.811 Pregnancy related exhaustion and fatigue, first trimester; O99.340 Other mental disorders complicating pregnancy, unspecified trimester; F32.A Depression, unspecified; F41.9 Anxiety disorder, unspecified; O99.331 Smoking (tobacco) complicating pregnancy, first trimester; F17.210 Nicotine dependence, cigarettes, uncomplicated; Z88.0 Allergy status to penicillin; Z88.1 Allergy status to other antibiotic agents; Z88.3 Allergy status to other anti-infective agents; Z3A.08 8 weeks gestation of pregnancy; Z82.49 Family history of ischemic heart disease and other diseases of the circulatory system; Z83.3 Family history of diabetes mellitus; Z84.1 Family history of disorders of kidney and ureter
CPT/HCPCS: 80053; 81001; 83690; 84436; 84443; 84484; 84702; 85025; 87086; 93005; 93225; 93226; 96361; 96374; 99285; C9803; U0003; U0005

== ENCOUNTER → 2022-04-27 12:53 | Outpatient (CLI) | payer MEDICAID, SELFPAY ==
--- NOTE | 2022-04-27 12:58 | US_ITS ---
FINAL REPORT CLINICAL HISTORY: for dates FINDINGS: Sonographic images of the pelvis were obtained. A single, living intrauterine is noted. A yolk sac is present and measures [address] to rump length measures 20 mm which corresponds to 8 weeks 4 days gestation. Heartbeat is identified and measures 165 beats per minute. The right ovary is within normal limits. The left ovary is within normal limits. IMPRESSION: Single, living, intrauterine gestation with 8 weeks 4 days gestational age. Reviewed, Interpreted and Dictated by Jose Murguia III, MD Transcribed by Marie Blake Authenticated and . [facility]
[2022-04-27 14:05] LABS: Basophils # 0.1 K/mm3 (0-0.2); Basophils % 0.5 % (0.1-2.0); Eosinophils # 0.1 K/mm3 (0.0-0.4); Eosinophils % 0.8 % (0.1-12.0); Hematocrit 37.6 % (37.0-47.0); Hemoglobin 11.7 g/dL (12.2-16.2); Lymphocytes # 2.7 K/mm3 (0.7-4.5); Lymphocytes % 22.2 % (10-50); Mean Corpuscular Hemoglobin 28.5 pg (27.0-31.2); Mean Corpuscular Volume 91.9 fl (81-99); Mean Platelet Volume 8.4 fl (7.4-10.4); Monocytes # 0.7 K/mm3 (0.1-1.0); Monocytes % 5.8 % (1.7-9.3); Neutrophils # 8.5 K/mm3 (1.8-7.8); Neutrophils % 70.6 % (37.0-80.0); Platelet Count 348 K/mm3 (142-424); Red Blood Count 4.09 M/mm3 (4.20-5.40); Red Cell Distribution Width 14.9 % (11.5-17.5); White Blood Count 12.1 K/mm3 (4.8-10.8)
[2022-04-28 06:12] LABS: HIV Screen 4th Generation wRfx Non Reactive (Non Reactive)
[2022-04-28 07:14] LABS: Hepatitis B Surface Antigen Negative (Negative); Hepatitis C Antibody <0.1 s/co ratio (0.0-0.9)
[2022-04-28 11:12] LABS: Rapid Plasma Reagin Ab Titer Non Reactive (NonRea<1:1)
== END ==
PROVIDERS: PCP Nurse Practitioner Family; Visit Provider Nurse Practitioner Obstetrics & Gynecology
DX: Z34.90 Encounter for supervision of normal pregnancy, unspecified, unspecified trimester (principal)
CPT/HCPCS: 36415; 76801; 85025; 86592; 86703; 86762; 86850; 87340; 87380; G0432

== ENCOUNTER 2022-06-30 18:00 | Emergency (ER) | payer MEDICAID, SELFPAY ==
[2022-06-30 18:50] VITALS: BP 131/86; PULSE 101; RESP 18; TEMP 36.6; O2SAT 99; BMI 34.9
--- NOTE | 2022-06-30 19:08 | EXP.UTC ---
Discharge Plan Disposition Patient Disposition: Home, Self-Care Condition: Good Prescriptions Prescriptions: No Action prenat.vits,juan r,vbo-rivd-fulcb Tablet 1 tab PO DAILY fluoxetine 20 mg capsule 20 mg PO DAILY Qty: 30 1RF ondansetron 4 mg tablet,disintegrating 4 mg PO Q6H PRN (Reason: nausea and vomiting) Qty: 20 2RF ondansetron 4 MG tablet,disintegrating 4 mg PO Q8HP PRN (Reason: Nausea) Qty: 20 0RF buspirone 10 MG tablet 20 mg PO BID Referrals Follow up/Referrals: Polina Brantley APRN [Primary Care Provider] - See instructions Activity Restrictions/Add. Instructions Additional Instructions/Restrictions: Discuss with your OB what you can take while and make sure to discuss with pharmacist *Monitor Temp, Over the counter Motrin or Tylenol as directed/as needed Tylenol every 4 hours and Motrin every 6 hours (as long as your family doctor has told you that you can take it) for fever or pain. and straight to ER if unable to lower temp less than 101.0 after medication given *Warm salt water gargles may help to soothe the throat *Throat Lozenges? *Warm fluids like tea with honey may help to soothe the throat? *Sleep elevated *Humidifier/Vaporizer Your throat swab was sent for culture. Those results are typically sent to your primary care. Be sure to follow up in 2-3 days with your family doctor/primary care physician if no improvement so they can review those result and treat if necessary. If you don?t have a primary care doctor, I recommend you get one but in the mean time, you will have to return to a walk in clinic Follow up IMMEDIATELY for new or worsening symptoms or no Noticeable improvement over the next 48-72 hours. 911 for difficulty breathing or swallowing You were tested for today for COVID19 your test result should be back in the next 24-48 hours, you may check your results on the [facility] [employer] Health Portal Clinical Impressions Clinical Impression: Viral upper respiratory tract infection with cough Stand Alone Forms Stand Alone Forms: Work/School Release Instructions Patient Instructions: Cough, DI for Viral Upper Respiratory Infection -- Adult Discharge ED Provider: Vaishali Cortes [facility] [place] HPI General Stated complaint: 18 WK Preg cough congestion sore throat Mode of Arrival: Ambulatory Source of Information: Patient Limitations: No Limitations Time Seen by Provider: 06/30/22 19:08 Description of Symptoms (Recalled from Triage Doc. by RN): pt currently pregnany 17.5 weeks. pt comes in with c/o sore throat, headache, runny nose, cough ongoing for 3 days HEENT Symptoms (Recalled from RN notes): Yes Resp Symptoms (Recalled from RN notes): Yes Skin Symptoms (Recalled from RN notes): No MS Symptoms (Recalled from RN notes): No Functional Status (Recalled from RN notes): n/a History of Present Illness Provider Complaint: Patient state that she is 18wks OB States that she has been having runny nose cough and sore throat for about 3 days States that son is having same symptoms so she came in to get checked Related Data Home Medications Medication Instructions Recorded Confirmed prenat.vits,juan r,ehb-kame-axnzx 1 tab PO DAILY Supplement 09/16/21 06/30/22 buspirone 10 mg tablet 20 mg PO BID Anxiety 04/18/22 06/30/22 Previous Rx's Medication Instructions Recorded ondansetron 4 mg disintegrating 4 mg PO Q8HP PRN Nausea #20 tabs 02/16/22 tablet fluoxetine 20 mg capsule 20 mg PO DAILY Depression #30 caps 04/20/22 ondansetron 4 mg disintegrating 4 mg PO Q6H PRN nausea and 05/31/22 tablet vomiting #20 tabs Allergies Allergy/AdvReac Type Severity Reaction Status Date / Time amoxicillin Allergy Verified 06/30/22 18:58 Worker's Comp Is this a Worker's Comp case?: No [facility] Medical History (Updated 06/30/22 @ 19:15 by Vaishali Cortes, JOCELYN) Screening for genetic disease carrier status Surgical History (Updated 06/14/22 @ 14:04 by
[2022-06-30 19:11] LABS: UTC Strep Screen (Rapid) Negative (Negative)
[2022-06-30 19:23] LABS: Adenovirus,PCR Not Detected (NotDetected); Bordetella Pertussis Not Detected (NotDetected); Chlamydophila Pneumoniae, PCR Not Detected (NotDetected); Coronavirus 19, PCR Not Detected (NotDetected); Coronavirus 229E Not Detected (NotDetected); Coronavirus NL63 Not Detected (NotDetected); Coronavirus OC43 Not Detected (NotDetected); Coronovirus HKU1,PCR Not Detected (NotDetected); Human Metapneumovirus Not Detected (NotDetected); Influenza A, PCR Not Detected (NotDetected); Influenza AH1, 2009 Not Detected (NotDetected); Influenza AH1, PCR Not Detected (NotDetected); Influenza AH3,PCR Not Detected (NotDetected); Influenza B, PCR Not Detected (NotDetected); Mycoplasma Pneumoniae, PCR Not Detected (NotDetected); Parainfluenza 1, PCR Not Detected (NotDetected); Parainfluenza 2, PCR Not Detected (NotDetected); Parainfluenza 3, PCR Not Detected (NotDetected); Parainfluenza 4, PCR Not Detected (NotDetected); Respiratory Syncytial Virus Not Detected (NotDetected)
[2022-06-30 19:30] VITALS: BP 131/86; PULSE 101; RESP 18; TEMP 36.6
[2022-06-30 23:36] LABS: Rhinovirus/Enterovirus Detected (NotDetected)
== END 2022-06-30 19:53 | disposition home or self-care (01) ==
PROVIDERS: Emergency Provider Nurse Practitioner; PCP Nurse Practitioner Family
DX: J06.9 Acute upper respiratory infection, unspecified (principal)
CPT/HCPCS: 87581; 87632; 87798; 87880; 99212; C9803; G0463; U0003; U0005

== ENCOUNTER → 2022-07-27 14:47 | Outpatient (CLI) | payer MEDICAID, SELFPAY ==
--- NOTE | 2022-07-27 14:47 | US_ITS ---
FINAL REPORT CLINICAL HISTORY: 20 week anatomy scan FINDINGS: US PREG /MATERNAL >14WKS ODAYS There is a single live intrauterine gestation. Presentation is breech. The cervix is closed and measures 4.3 cm. Placenta is anterior, grade 1. Cardiac activity is confirmed at 147 bpm. The fetus is active. Gross anatomy is unremarkable. Three-vessel cord with satisfactory umbilical cord insertion. Four-chamber heart is noted. AMNIOTIC FLUID: Appropriate amount. MEASUREMENTS: ULTRASOUND AGE: 20 weeks 6 days. GESTATION AGE: 21 weeks 4 days. ESTIMATED WEIGHT: 411 g GROWTH PERCENTILE: 29% LMP percentile BPD: 4.6 cm corresponding with 20 weeks 0 days. OFD: 6.6 cm corresponding with 21 weeks 6 days. HC: 17.9 cm corresponding with 20 weeks 3 days. AC: 16.4 cm corresponding with 21 weeks 3 days. FL: 3.6 cm corresponding with 21 weeks 4 days. CEREBELLUM: 2.0 cm corresponding with 20 weeks 5 days. HUMERUS: 3.4 cm corresponding with 21 weeks 5 days. HC/AC: 1.10 CI: 69% FL/BPD: 78% FL/AC: 22% IMPRESSION: Single living IUP with an ultrasound age of 20 weeks 6 days. Reviewed, Interpreted and Dictated by Norris Levi MD Transcribed by Marie Blake Authenticated and [facility]
== END ==
PROVIDERS: PCP Nurse Practitioner Family; Visit Provider Nurse Practitioner Obstetrics & Gynecology
DX: Z34.90 Encounter for supervision of normal pregnancy, unspecified, unspecified trimester (principal); Z3A.20 20 weeks gestation of pregnancy
CPT/HCPCS: 76811

== ENCOUNTER 2022-08-05 11:34 | Outpatient (CLI) | payer MEDICAID, SELFPAY ==
[2022-08-05 12:20] VITALS: BMI 37.9
[2022-08-05 12:36] VITALS: BMI 37.9
[2022-08-05 12:45] LABS: Coronavirus 19, PCR Not Detected (NotDetected); Influenza A, PCR Not Detected (NotDetected); Influenza B, PCR Not Detected (NotDetected)
[2022-08-05 12:46] VITALS: BP 132/71; PULSE 95; RESP 18; TEMP 36.8; O2SAT 100
[2022-08-05 12:54] LABS: Chloride 106 mmol/L (98-107); Sodium 135 mmol/L (136-145)
[2022-08-05 12:55] LABS: Potassium 3.8 mmoL/L (3.5-5.1)
[2022-08-05 12:57] LABS: Alanine Aminotransferase 14 U/L (12-78); Albumin Level 3.4 g/dl (3.5-5.0); Albumin/Globulin Ratio 1.4 (1.1-1.8); Alkaline Phosphatase 111 U/L (38-126); Anion Gap 9.8 mEq/L (5-15); Aspartate Amino Transferase 17 U/L (14-36); Blood Urea Nitrogen 5 mg/dl (7-17); Carbon Dioxide 23 mmol/L (22.0-30.0); Creatinine Clearance Estimated 277 mL/min (50-200); Estimated Glomerular Filt Rate 145 ml/min (>60); GFR (African American) 175 ML/MIN (>60); Globulin 2.5 g/dL (1.3-3.2); Total Protein,Serum 5.9 g/dl (6.3-8.2)
[2022-08-05 12:58] LABS: Calcium 9.3 mg/dl (8.4-10.2); Glucose 89 mg/dl (74-100)
[2022-08-05 12:59] LABS: Bilirubin,Total < 0.1 mg/dl (0.2-1.3)
== END 2022-08-05 15:00 | disposition home or self-care (01) ==
LOC: OBOUT 11:36 → OB 11:37
PROVIDERS: PCP Nurse Practitioner Family; Referring Provider Nurse Practitioner Obstetrics & Gynecology; Visit Provider Nurse Practitioner Obstetrics & Gynecology
DX: O26.892 Other specified pregnancy related conditions, second trimester (principal); Z3A.23 23 weeks gestation of pregnancy
CPT/HCPCS: 80053; 96360; 96361; C9803; J2405; U0003; U0005

== ENCOUNTER 2022-08-09 14:46 | Outpatient (CLI) | payer MEDICAID, SELFPAY ==
[2022-08-09 15:24] VITALS: BMI 36.5
[2022-08-09 15:25] VITALS: BP 123/74; PULSE 81; RESP 18; TEMP 36.9; O2SAT 98; BMI 36.5
[2022-08-09 15:45] LABS: Coronavirus 19, PCR Not Detected (NotDetected); Influenza A, PCR Not Detected (NotDetected); Influenza B, PCR Not Detected (NotDetected)
== END 2022-08-09 16:45 | disposition home or self-care (01) ==
LOC: OBOUT 14:47 → OB 14:48
PROVIDERS: PCP Nurse Practitioner Family; Visit Provider Nurse Practitioner Obstetrics & Gynecology
DX: O26.892 Other specified pregnancy related conditions, second trimester (principal); Z3A.23 23 weeks gestation of pregnancy
CPT/HCPCS: C9803; U0003; U0005

== ENCOUNTER → 2022-09-12 08:25 | Outpatient (CLI) | payer MEDICAID, SELFPAY ==
[2022-09-12 08:28] LABS: MANUAL DIFFERENTIAL MANUAL DIFFERENTIAL (MANUAL DIFF)
[2022-09-12 08:47] LABS: Basophils # 0.1 K/mm3 (0-0.2); Basophils % 0.5 % (0.1-2.0); Eosinophils # 0.2 K/mm3 (0.0-0.4); Eosinophils % 1.3 % (0.1-12.0); Hematocrit 33.5 % (37.0-47.0); Hemoglobin 11.1 g/dL (12.2-16.2); Lymphocytes # 2.5 K/mm3 (0.7-4.5); Lymphocytes % 17.7 % (10-50); Mean Corpuscular HGB Conc 33.3 g/dL (31.8-35.4); Mean Corpuscular Hemoglobin 29.7 pg (27.0-31.2); Mean Corpuscular Volume 89.1 fl (81-99); Mean Platelet Volume 8.3 fl (7.4-10.4); Monocytes # 0.5 K/mm3 (0.1-1.0); Monocytes % 3.8 % (1.7-9.3); Neutrophils # 10.7 K/mm3 (1.8-7.8); Neutrophils % 76.7 % (37.0-80.0); Platelet Count 331 K/mm3 (142-424); Red Blood Count 3.76 M/mm3 (4.20-5.40); Red Cell Distribution Width 14.3 % (11.5-17.5); White Blood Count 13.9 K/mm3 (4.8-10.8)
[2022-09-12 08:52] LABS: Glucose,Fasting 108 mg/dl (74-100)
[2022-09-12 09:08] LABS: Lymphocytes % 17 % (10-50); Monocytes % 3 % (2-9); Neutrophils % 80 % (42-76); Platelet Estimate Normal; RBC Morphology Normal; Total Cells Counted 100
[2022-09-12 10:37] LABS: Glucose 1 Hour 132 mg/dL (74-100)
== END ==
PROVIDERS: PCP Nurse Practitioner Family; Visit Provider Nurse Practitioner Obstetrics & Gynecology
DX: Z34.90 Encounter for supervision of normal pregnancy, unspecified, unspecified trimester (principal); Z3A.19 19 weeks gestation of pregnancy
CPT/HCPCS: 36415; 82951; 85007; 85014; 85018; 85048; 85049

== ENCOUNTER 2022-11-13 12:59 | Emergency (ER) | payer MEDICAID, SELFPAY ==
[2022-11-13 14:00] VITALS: BP 112/65; PULSE 87; RESP 20; TEMP 36.9; O2SAT 98; BMI 40.3
--- NOTE | 2022-11-13 14:25 | EXP.UTC ---
Discharge Plan Disposition Patient Disposition: Home, Self-Care Condition: Good Prescriptions Prescriptions: No Action prenat.vits,jaun r,zbj-ipur-uqbhb Tablet 1 tab PO DAILY buspirone 10 mg tablet 20 mg PO BID Qty: 120 0RF fluoxetine 20 mg capsule 20 mg PO DAILY Qty: 30 1RF sennosides [Natural Senna Laxative] 8.6 mg tablet 8.6 mg PO DAILY ferrous sulfate 325 mg (65 mg iron) tablet,delayed release (DR/EC) 325 mg PO DAILY Qty: 30 11RF promethazine 12.5 mg suppository 12.5 mg IN Q4-6H PRN (Reason: nausea and vomiting) Qty: 12 0RF ondansetron 4 mg tablet,disintegrating 4 mg PO Q6H PRN (Reason: nausea and vomiting) Qty: 20 2RF Referrals Follow up/Referrals: Polina Brantley APRN [Primary Care Provider] - See instructions Activity Restrictions/Add. Instructions Additional Instructions/Restrictions: *Monitor Temp, Over the counter Motrin or Tylenol as directed/as needed Tylenol every 4 hours and Motrin every 6 hours (as long as your family doctor has told you that you can take it) for fever or pain. and straight to ER if unable to lower temp less than 101.0 after medication given *Warm salt water gargles may help to soothe the throat *Throat Lozenges? *Warm fluids like tea with honey may help to soothe the throat? *Sleep elevated *Humidifier/Vaporizer Your throat swab was sent for culture. Those results are typically sent to your primary care. Be sure to follow up in 2-3 days with your family doctor/primary care physician if no improvement so they can review those result and treat if necessary. If you don?t have a primary care doctor, I recommend you get one but in the mean time, you will have to return to a walk in clinic Follow up IMMEDIATELY for new or worsening symptoms or no Noticeable improvement over the next 48-72 hours. 911 for difficulty breathing or swallowing You were tested for today for COVID19 your test result should be back in the next 24-48 hours, you may check your results on the [facility] Health Portal Clinical Impressions Clinical Impression: Viral upper respiratory infection Stand Alone Forms Stand Alone Forms: Work/School Release Instructions Patient Instructions: Cough, Sore Throat Discharge ED Provider: Vaishali Cortes [facility] [place] HPI General Stated complaint: sore throat, cough, no taste Mode of Arrival: Ambulatory Source of Information: Patient Limitations: No Limitations Time Seen by Provider: 11/13/22 14:25 Description of Symptoms (Recalled from Triage Doc. by RN): PATIENT C/O COUGH, SORE THROAT, NO TASTE, AND RUNNY NOSE THAT STARTED MONDAY HEENT Symptoms (Recalled from RN notes): Yes Resp Symptoms (Recalled from RN notes): Yes Skin Symptoms (Recalled from RN notes): No MS Symptoms (Recalled from RN notes): No Functional Status (Recalled from RN notes): WNL History of Present Illness Provider Complaint: Patient states that she has been having cough, runny nose and sore throat with no taste or smell since Monday state that she is 37wks OB and worried that she may have strep or COVID States that she took an at home COVID test yesterday and it was negative but she was still feeling bad today so she came in Related Data Home Medications Medication Instructions Recorded Confirmed prenat.vits,juan r,ddz-jxvf-kmmoy 1 tab PO DAILY Supplement 09/16/21 10/30/22 sennosides 8.6 mg tablet (Natural 8.6 mg PO DAILY 07/12/22 10/30/22 Senna Laxative) Previous Rx's Medication Instructions Recorded ferrous sulfate 325 mg (65 mg 325 mg PO DAILY #30 tabs 07/12/22 iron) tablet,delayed release promethazine 12.5 mg rectal 12.5 mg IN Q4-6H PRN nausea and 08/09/22 suppository vomiting #12 ea ondansetron 4 mg disintegrating 4 mg PO Q6H PRN nausea and 08/18/22 tablet vomiting #20 tabs buspirone 10 mg tablet 20 mg PO BID Anxiety #120 tabs 10/12/22 fluoxetine 20 mg capsule 20 mg PO DAILY Depression #30 caps 10/12/22 Allergies Allergy/AdvRe
[2022-11-13 14:33] VITALS: BP 112/65; PULSE 87; RESP 20; TEMP 36.9; O2SAT 98
[2022-11-13 14:35] LABS: UTC Strep Screen (Rapid) Negative (Negative)
== END 2022-11-13 14:40 | disposition home or self-care (01) ==
PROVIDERS: Emergency Provider Nurse Practitioner; PCP Nurse Practitioner Family
DX: J06.9 Acute upper respiratory infection, unspecified (principal)
CPT/HCPCS: 87880; 99212; C9803; G0463; U0003; U0005

== ENCOUNTER 2024-01-06 10:16 | Outpatient (CLI) | payer MEDICAID, SELFPAY ==
[2024-01-06 10:52] LABS: Basophils # 0.1 K/mm3 (0-0.2); Eosinophils # 0.1 K/mm3 (0.0-0.4); Eosinophils % 1.5 % (0.1-12.0); Hematocrit 40.4 % (37.0-47.0); Hemoglobin 13.6 g/dL (12.2-16.2); Lymphocytes # 2.9 K/mm3 (0.7-4.5); Mean Corpuscular HGB Conc 33.7 g/dL (31.8-35.4); Mean Corpuscular Hemoglobin 30.8 pg (27.0-31.2); Mean Corpuscular Volume 91.5 fl (81-99); Mean Platelet Volume 8.7 fl (7.4-10.4); Monocytes # 0.4 K/mm3 (0.1-1.0); Monocytes % 4.2 % (1.7-9.3); Neutrophils # 5.1 K/mm3 (1.8-7.8); Neutrophils % 59.2 % (37.0-80.0); Platelet Count 335 K/mm3 (142-424); Red Blood Count 4.42 M/mm3 (4.20-5.40); Red Cell Distribution Width 13.5 % (11.5-17.5); White Blood Count 8.6 K/mm3 (4.8-10.8)
[2024-01-06 11:16] LABS: Alanine Aminotransferase 29 U/L (12-78); Albumin Level 4.4 g/dl (3.5-5.0); Albumin/Globulin Ratio 1.8 (1.1-1.8); Alkaline Phosphatase 94 U/L (38-126); Anion Gap 11.5 mEq/L (5-15); Aspartate Amino Transferase 23 U/L (14-36); Bilirubin,Total 0.4 mg/dl (0.2-1.3); Blood Urea Nitrogen 7 mg/dl (7-17); Calcium 9.7 mg/dl (8.4-10.2); Carbon Dioxide 24 mmol/L (22.0-30.0); Chloride 110 mmol/L (98-107); Chol/HDL Ratio 4.1 (1-3.5); Cholesterol 154 mg/dl (140-200); Estimated Glomerular Filt Rate 117 ml/min (>60); GFR (African American) 141 ML/MIN (>60); Globulin 2.5 g/dL (1.3-3.2); Glucose 97 mg/dl (74-100); HDL Cholesterol 38 mg/dl (40-60); Magnesium 1.8 mg/dl (1.6-2.3); Potassium 4.5 mmoL/L (3.5-5.1); Sodium 141 mmol/L (136-145); Total Protein,Serum 6.9 g/dl (6.3-8.2); Triglycerides 190 mg/dl (30-150); VLDL Cholesterol 38 mg/dL (0-40)
[2024-01-06 11:17] LABS: Hemoglobin A1C 5.6 % (4.0-6.0)
[2024-01-06 11:28] LABS: Direct LDL Cholesterol 85.06 mg/dL (100-129)
[2024-01-06 11:33] LABS: 25-OH Vitamin D, Total 31.6 ng/mL (30-100)
[2024-01-06 11:47] LABS: Thyroid Stimulating Hormone 1.49 uIU/mL (0.465-4.68)
[2024-01-06 12:03] LABS: Iron 88 ug/dL (37-170)
[2024-01-06 12:06] LABS: Vitamin B12 419 pg/mL (239-931)
[2024-01-06 12:12] LABS: Total Iron Binding Capacity 328 ug/dL (265-497)
[2024-01-06 12:39] LABS: Ferritin 26.3 ng/ml (6.24-137)
== END 2024-01-06 23:59 | disposition home or self-care (01) ==
LOC: LAB 10:17
PROVIDERS: Physician Assistant; PCP Nurse Practitioner Family; Visit Provider Nurse Practitioner Family
DX: R42 Dizziness and giddiness (principal); R53.83 Other fatigue; Z86.2 Personal history of diseases of the blood and blood-forming organs and certain disorders involving the immune mechanism; Z86.39 Personal history of other endocrine, nutritional and metabolic disease; Z87.898 Personal history of other specified conditions; Z83.438 Family history of other disorder of lipoprotein metabolism and other lipidemia
CPT/HCPCS: 36415; 80053; 80061; 82306; 82607; 82728; 83036; 83540; 83550; 83735; 84443; 85025

== ENCOUNTER 2024-10-02 17:43 | Outpatient (CLI) | payer MEDICAID, SELFPAY ==
[2024-10-02 18:02] LABS: Adenovirus F 40/41, stool Not Detected (NotDetected); Astrovirus Not Detected (NotDetected); Campylobacter Not Detected (NotDetected); Clostridium Difficile A/B, PCR Not Detected (NotDetected); Cryptosporidium Not Detected (NotDetected); Cyclospora Cayetanesis Not Detected (NotDetected); Entamoeba histolytica Not Detected (NotDetected); Enteroaggregative E coli Not Detected (NotDetected); Enteropathogenic E coli Not Detected (NotDetected); Enterotoxigenic E coli Not Detected (NotDetected); Giardia lamblia Not Detected (NotDetected); Norovirus Not Detected (NotDetected); Plesimonas Shigalloides, PCR Not Detected (NotDetected); Rotavirus A Not Detected (NotDetected); Salmonella, PCR Not Detected (NotDetected); Sapovirus Not Detected (NotDetected); Shiga-like toxin E coli Not Detected (NotDetected); Shigella Enterovasive E coli Not Detected (NotDetected); Vibrio Cholerae Not Detected (NotDetected); Vibrio, PCR Not Detected (NotDetected); Yersinia Entercolitica, PCR Not Detected (NotDetected)
== END 2024-10-02 23:59 | disposition home or self-care (01) ==
LOC: LAB.DROPOF 17:45
PROVIDERS: PCP Physician Assistant; Visit Provider Physician Assistant
DX: R19.7 Diarrhea, unspecified (principal)
CPT/HCPCS: 87507

== ENCOUNTER 2024-11-23 15:21 | Emergency (ER) | payer MEDICAID, SELFPAY ==
--- NOTE | 2024-11-23 15:38 | XR_ITS ---
PROCEDURE INFORMATION: Exam: XR Right Toe(s) Exam date and time: 11/23/2024 4:15 PM Age: 34 years old Clinical indication: Injury or trauma; Other: R great toe axial injury; Blunt trauma; Toes; Right TECHNIQUE: Imaging protocol: Radiologic exam of the right toes. Views: Minimum 2 views. COMPARISON: No relevant prior studies available. FINDINGS: Bones/joints: Acute nondisplaced hairline fracture in the distal phalanx of the great toe. No displaced fracture. Joint alignment is normal. Soft tissues: Unremarkable. IMPRESSION: Acute nondisplaced hairline fracture in the distal phalanx of the great toe.
[2024-11-23 15:47] VITALS: BP 110/79; PULSE 76; RESP 18; TEMP 37.1; O2SAT 98; BMI 35.5
--- NOTE | 2024-11-23 16:02 | HMH.EDGENADL ---
Discharge Plan Disposition Patient Disposition: Home, Self-Care Chief Complaint: Extremity Injury, Lower Prescriptions Prescriptions: No Action prenat.vits,juan r,paa-ocxg-gxisy Tablet 1 tab PO DAILY sennosides [Natural Senna Laxative] 8.6 mg tablet 8.6 mg PO DAILY ferrous sulfate 325 mg (65 mg iron) tablet,delayed release (DR/EC) 325 mg PO DAILY Qty: 30 11RF promethazine 12.5 mg suppository 12.5 mg MA Q4-6H PRN (Reason: nausea and vomiting) Qty: 12 0RF fluoxetine [Prozac] 40 mg capsule 40 mg PO DAILY Qty: 30 2RF atomoxetine [Strattera] 60 mg capsule 60 mg PO DAILY Qty: 30 1RF ondansetron 4 mg tablet,disintegrating 4 mg PO Q6H PRN (Reason: nausea and vomiting) Qty: 20 2RF Referrals Follow up/Referrals: Polina Woodward PA [Primary Care Provider] - See instructions Juan R Giron DO [Staff Physician] - See instructions Activity Restrictions/Add. Instructions Additional Instructions/Restrictions: Follow-up with Dr. Giron regarding this visit to the emergency department. He will likely get further x-rays to see how your foot is healing. Hard sole shoe at all times while bearing weight. Call your family doctor to establish care for this visit to the emergency department and schedule follow-up within 48 hours to ensure improvement. If you have any worsening of your condition or any other concerning signs or symptoms, return to the emergency department or your primary care doctor for further evaluation. Clinical Impressions Clinical Impression: Closed fracture of right great toe Print Language Print Language: Tamazight Discharge ED Provider: Erick Breaux General Adult HPI General Chief complaint: Extremity Injury, Lower Stated complaint: AO 11/23/24 0900 injury right great toe Time Seen by Provider: 11/23/24 15:26 Mode of Arrival: Ambulatory Source of Information: Patient Description of Symptoms (Recalled from ER Triage Doc. by RN): ran into the door this morning. injured r great toe History of Present Illness HPI narrative: Please note that above description of symptoms, in this electronic medical record under categorization of recalled from ER triage doctor by RN are reflective of an initial nursing assessment, however, is not reflective of my full history and physical exam that was personally taken and clarified. Consequentially, this preceding description of symptoms, which may include the patient's categorized chief complaint in the EMR, do not reflect my personal clinical impression, and the ultimate description of history of present illness and patient stated complaints should be deferred to this section of the note. Unless stated otherwise or congruent with this section of the note, additional signs, symptoms, or incongruence should be interpreted as inaccurate with my clinical impression. Related Data Home Medications ?Medication ?Instructions ?Recorded ?Confirmed prenat.vits,juan r,suf-nnhu-ssotc 1 tab PO DAILY Supplement 09/16/21 10/29/24 sennosides 8.6 mg tablet (Natural 8.6 mg PO DAILY 07/12/22 10/29/24 Senna Laxative) Previous Rx's ?Medication ?Instructions ?Recorded ferrous sulfate 325 mg (65 mg 325 mg PO DAILY #30 tabs 07/12/22 iron) tablet,delayed release promethazine 12.5 mg rectal 12.5 mg MA Q4-6H PRN nausea and 08/09/22 suppository vomiting #12 ea ondansetron 4 mg disintegrating 4 mg PO Q6H PRN nausea and 08/18/22 tablet vomiting #20 tabs atomoxetine 60 mg capsule 60 mg PO DAILY #30 caps 09/24/24 (Strattera) fluoxetine 40 mg capsule (Prozac) 40 mg PO DAILY #30 caps 09/24/24 Allergies Allergy/AdvReac Type Severity Reaction Status Date / Time amoxicillin Allergy Verified 10/29/24 10:09 [facility] Disclaimer: The information contained in this section may have been updated after the patient was seen, as this information can be updated by other users. Medical History (Updated 11/23/24 @ 16:35 by Erick Breaux MD) Attention deficit disorder (ADD) in adult Generalized anxiety disorder Major depressive disorder Screening for genetic disease carrier status Surgical History (Updated 08/23/22 @ 15:44 by Arpan Irby MD) Hx of section Family History Other No significant family history Social History Smoking Status: Never smoker second hand exposure: Yes alcohol intake: never substance use type: marijuana current occupational status: employed Travel in the last 8 weeks: None household members: spouse housing: house number of children: 1 current occupation: director of business operations caffeine: Yes Have you lived/traveled outside [place] in past 30 days?: No Contact w/someone who lives/traveled outside US past 30 days?: No Exposure to someone with infectious disease in past 14 days?: No Do you have a fever (greater than 100.4 F or 38 C)?: No Have you tested positive for COVID-19: No Exposed to someone with COVID-19 in past 14 days?: No Do you have a sore throat?: No Do you have a cough?: No Do you have any weakness?: No Do you have any diarrhea?: No Are you experiencing any unusual bleeding?: No Do you have any muscle aches/pain?: No Do you have any abdominal pain?: No Are you experiencing loss of taste or smell?: No Other Medical History Have you received the Flu Vaccine for this season: No Have you received the Pneumonia Vaccine: No ROS Obtained: Yes All systems reviewed & no additional complaints except as documented Physical Exam General General appearance: alert Head Head exam: atraumatic and normocephalic Eye Eye exam: Present normal appearance, PERRL and EOMI Neck Neck exam: Present normal inspection, full ROM and trachea midline Respiratory Respiratory exam: Absent respiratory distress, wheezes, stridor, accessory muscle use or prolonged expiratory phase Cardiovascular Cardiovascular exam: Present other (Pulses equal symmetric in upper and lower extremities) Abdominal Exam Abdominal exam: Present soft; Absent distention, tenderness or pulsatile mass Extremities Exam Extremities exam: Present other (Per MDM) Neurological Exam Neurological exam: Present alert, oriented X3 and CN II-XII intact; Absent motor sensory deficit Skin Skin exam: Present warm and dry; Absent diaphoresis or erythema Medical Decision Making Medical Records Medical records reviewed: Yes I reviewed the patient's medical records. Screening: Per USPSTF and CDC recommendations, given the prevalence of disease in our region, it is our hospital?s policy to screen for HIV and viral Hepatitis for all patients aged 18 and over and those with ongoing risk factors. Raz Inquiry Pt receiving controlled substance: No Raz was queried for this patient: No Vital Signs: 11/23/24 15:47 11/23/24 16:14 Temperature 98.7 F Temperature Source Oral Pulse Rate 81 Pulse Rate [Right] 76 Respiratory Rate 18 Blood Pressure 122/39 L Blood Pressure [Right Arm] 110/79 Blood Pressure Mean [Right Arm] 89 02 Sat by Pulse Oximetry 98 98 Oxygen Delivery Method Room Air Room Air Orders (Tests/Meds): ORDERS Category Date Time Status XR toe RT min 2V Stat Exams 11/23/24 15:38 Taken Medical Decision Narrative: This is a 34-year-old female presenting with right foot injury. She states that earlier today 11/23 hit her foot on a door frame. Able to ambulate, but having significant pain and swelling. Tylenol and motrin not helping much, so came in for fruther evaluation. History was obtained via conversation with patient. On arrival, patient hemodynamically stable, alert, oriented x4, appropriate, GCS 15, moving all extremities spontaneously, pupils equal and reactive to light. Full physical exam performed and significant for fusiform swelling and pain of the right great toe. Erythematous and swollen. Range of motion is intact, neurovascularly intact. Range of motion is full, but limited secondary to pain. Differential includes fracture, dislocation, among others. Patient given Tylenol and Motrin. X-rays were obtained and independently interpreted. These demonstrated nondisplaced fracture of the right great toe, possibly extending proximally intra-articularly, but difficult to definitively discern. Patient placed in [place] shoe. Outpatient orthopedic follow-up was arranged. Because patient at baseline without signs or symptoms of clinical decompensation, deemed appropriate for discharge. Results were relayed to patient who voiced understanding and were agreeable to outpatient management and follow up. I discussed my clinical impression with patient and answered all questions. At this time, the evidence for any other entities in the differential is insufficient to warrant any further testing or ED observation. This was explained as well. Advisory was given that persistent or worsening symptoms require further evaluation. I confirmed the understanding of this discussion. Detective And Intelligence Analyst disclaimer Much of this encounter note is an electronic highway construction inspector spoken language to printed text. Electronic highway construction inspector of the spoken language may permit errors. Although I have reviewed the note, some errors may still exist. Critical Care Critical Care Time Critical Care Time: No
[2024-11-23 16:14] VITALS: BP 122/39; PULSE 81; O2SAT 98
--- NOTE | 2024-11-23 16:15 | PC.NURSE ---
XRAY AT CHAIR SIDE
[2024-11-23 17:28] VITALS: BP 122/39; PULSE 81; RESP 16; TEMP 36.7
== END 2024-11-23 17:29 | disposition home or self-care (01) ==
PROVIDERS: Emergency Provider Emergency Medicine; PCP Physician Assistant
DX: S92.491A Other fracture of right great toe, initial encounter for closed fracture (principal); M79.674 Pain in right toe(s); W22.8XXA Striking against or struck by other objects, initial encounter; Y93.89 Activity, other specified; Y92.009 Unspecified place in unspecified non-institutional (private) residence as the place of occurrence of the external cause
CPT/HCPCS: 73660; 99283

== ENCOUNTER 2025-01-02 07:16 | Outpatient (CLI) | payer MEDICAID, SELFPAY ==
--- NOTE | 2025-01-02 07:24 | XR_ITS ---
FINAL REPORT CLINICAL HISTORY: rt foot pain great toe fx 6 wks ago COMPARISON: None FINDINGS: RIGHT FOOT 3 views of the right foot were obtained. There is a healing transverse fracture of the first distal phalanx. Visualized joint spaces are normally aligned. Soft tissues are unremarkable. IMPRESSION: Healing transverse fracture of the first distal phalanx. Reviewed, Interpreted and Dictated by Norris Levi MD Transcribed by Amada Sherwood Authenticated and [facility]
[2025-01-02 08:54] LABS: Thyroid Stimulating Hormone 2.27 uIU/mL (0.465-4.68)
[2025-01-02 09:13] LABS: Vitamin B12 406 pg/mL (239-931)
[2025-01-02 09:24] LABS: Free T4 (Free Thyroxine) 0.83 ng/dl (0.78-2.19)
[2025-01-03 08:13] LABS: Thyroid Peroxidase Antibodies 14 IU/mL (0-34); Triiodothyronine (T3) Free 3.1 pg/mL (2.0-4.4)
[2025-01-08 23:14] LABS: 1,25 Dihydroxy Vitamin D 31 pg/mL (.); 1,25-Dihydroxy, Vitamin D-2 <10 pg/mL (.); 1,25-Dihydroxy, Vitamin D-3 31 pg/mL (.)
== END 2025-01-02 23:59 | disposition home or self-care (01) ==
LOC: LAB 07:20
PROVIDERS: PCP Physician Assistant
DX: G47.20 Circadian rhythm sleep disorder, unspecified type (principal); F51.8 Other sleep disorders not due to a substance or known physiological condition
CPT/HCPCS: 36415; 73630; 82533; 82607; 82652; 84439; 84443; 84481; 86376

== ENCOUNTER 2025-02-04 12:21 | Outpatient (CLI) | payer MEDICAID, SELFPAY ==
--- NOTE | 2025-02-04 12:29 | XR_ITS ---
FINAL REPORT CLINICAL HISTORY: great toe fracture COMPARISON: 11/23/2024 FINDINGS: RIGHT FOOT Three views were obtained. The previously identified fracture through the first distal phalange show some sclerosis at the fracture line. Fracture fragments are nondisplaced. Fracture line remains visible but there is bridging callus present. IMPRESSION: Healing fracture as above. Reviewed, Interpreted and Dictated by Norris Levi MD Transcribed by Princess Torres Authenticated and [facility]
== END 2025-02-04 23:59 | disposition home or self-care (01) ==
LOC: RAD 12:24
PROVIDERS: PCP Nurse Practitioner Family; Visit Provider Physician Assistant
DX: S92.401D Displaced unspecified fracture of right great toe, subsequent encounter for fracture with routine healing (principal)
CPT/HCPCS: 73630

== ENCOUNTER 2025-03-19 07:58 | Outpatient (CLI) | payer MEDICAID, SELFPAY ==
--- OUTSIDE RECORDS SUMMARY | 2025-03-19 08:02 | XMS_ITS | Clinical Summary ---
Author Organization [facility] Address [address] [place] [address] Care Team Providers Care First Cook Name Role Phone Dwain Nye MD Unavailable Polina Brantley APRN Primary Care Provider [phone] Allergies Active Allergy Reactions Criticality Noted Date Comments Amoxicillin Anaphylaxis High 09/16/2022 Medications busPIRone (Buspar) 10 MG tablet TAKE 2 TABLETS BY MOUTH TWICE DAILY FOR ANXIETY 2 Active FeroSul 325 (65 Fe) MG tablet Take 1 tablet by mouth 1 (one) time each day. 3 Active ondansetron ODT (Zofran-ODT) 4 MG disintegrating tablet DISSOLVE 1 TABLET IN MOUTH EVERY 6 HOURS NEEDED FOR NAUSEA AND VOMITING 3 Active etonogestrel-elutin g contraceptive device 68 MG implant 1 each by Implant route 1 (one) time. Active FLUoxetine (PROzac) 40 MG capsule Take 1 capsule (40 mg) by mouth 1 (one) time each day. 3 Active Active Problems Problem Noted Date Diagnosed Date Previous delivery, antepartum condition or complication 11/01/2022 Delivery by section using transverse incision of lower segment of uterus 11/06/2018 Obesity affecting in third trimester 0 11/06/2018 Pelvic inadequacy in 11/06/2018 Immunizations Immunization Administration Dates Next Due Influenza, Unspecified 08/29/2007 Influenza, injectable, quadrivalent, preservativ e free 09/16/2022 Tdap 09/16/2022 Family History Medical History Relation Name Comments Breast cancer Mother Uterine cancer Mother Relation Name Status Comments Mother Social History Tobacco Use Types Packs/Day Years Used Date Smoking Tobacco: Every Day Cigarettes Smokeless Tobacco: Never Tobacco Cessation:Ready to Q uit: Not Asked; Counseling Given: Not Answered Alcohol Use Standard Drinks/Week Comments Never 0 (1 standard drink = 0.6 oz pur e alcohol) PHQ-2 Answer Date Recorded Patient Health Questionnaire-2 Score 2 09/14/2023 Portal Depression Scale Answer Date Recorded Portal Depression Scale Total 2 12/13/2022 The thought of harming myself has occurred to me . Never 12/13/2022 Comments No Sex and Gender Information Value Date Recorded Sex Assigned at Not on file Legal Sex Female 8:33 PM EDT Gender Identity Not on file Sexual Orientation Not on file Last Filed Vital Signs Vital Sign Reading Time Taken Comments Blood Pressure 126/84 09/14/2023 1:32 PM EST Pulse 71 09/14/2023 1:32 PM EST Temperature 36.8 C (98.3 F) 09/14/2023 1:32 PM EST Respiratory Rate 18 03/17/2023 1:37 PM EDT Oxygen Saturation 96% 09/14/2023 1:32 PM EST Inhaled Oxygen Concentration - - Weight 106 kg (234 lb 5.6 oz) 09/14/2023 1:32 PM EST Height 167.6 cm (5' 6 ) 03/17/2023 1:37 PM EDT Body Mass Index 37.82 03/17/2023 1:37 PM EDT Plan of Treatment Health Maintenance Due Date Last Done Comments [facility]-/Child/Adol SDOH Screenings 1992 [facility]-IPV Vaccines (2 of 3 - 4-dose series) 06/14/1996 05/17/1996 [facility]-Varicella Vaccines (1 of 2 - 13+ 2-dose series) 2005 HPV Vaccines (1 - 3-dose series) 2007 [facility]- SDOH Screenings 2010 [facility]-Adult SDOH Screenings 2010 [facility]-Hepatitis B Vaccines (1 of 3 - 19+ 3-dose series) 2011 [facility]-HPV/Cotest 2022 [id number] Vaccine ( - 2023- season) 2024 05/06/2021, 04/08/2021 [facility]-Cervical Cancer Screening 09/13/2024 [facility]-Pap Smear 09/13/2024 09/13/2021 [facility]-Depression Screening 09/14/2024 024, 12/13/2022 [facility]-Influenza Vaccine (#1) 05/12/202509/16, 08/11/2020, 08/29/2007 [facility]-DTaP,Tdap,and Td Vaccine s (3 - Td or Tdap) 09/16/2032 09/16/2022, 05/17/1996 [facility]-Zoster Vaccines (1 of 2) 2042 [facility]-HIV Screening Completed 04/27/2022 [facility]-Hepatitis C Screening Completed 04/27/2022 [facility]-Obesity Intervention Completed 09/14/2023 [facility]-HIB Vaccines Aged Out No longer e ligible based on patient's age to complete this topic [facility]-Hepatitis A Vaccines Aged Out No longer eligible based on patient's age to complete this topic [facility]-Pneumococcal Vaccine: Pediatrics (0 to 5 Years) and At-Risk Patients (6 to 49 Years) Aged Out No longer eligible b ased on patient's age to complete this topic [facility]-Rotavirus Vaccines Aged Out No lo nger eligible based on patient's age to complete this topic Goals Goal Patient Goal Type Associated Problems Recent Progress Patient-Stated? Author Delayed Delivery Care Plan CPM S22 PP LABOR (OBSTETRICS) No Open Scheduling, Background Procedures Procedure Name Priority Date/Time Associated Diagnosis Comments HEPATITIS C ANTIBODY W/REFLEX TO HCV QUANT PCR Routine 04/27/2022 HIV 1/2 ANTIBODY/ANTIGEN SCREEN WITH REFLEX TO HIV I/II DIFFERENTIATION Routine 04/27/2022 PAP TEST - CYTOLOGY Routine 09/13/2021 from Last 3 Months or Most Recently Relevant to Health Maintenance Results * HIV 1 & 2 Antibody/Antigen Screen (04/27/2022) External HIV 1/2 Ab/Ag Negative Blood Venous blood specimen / Unknown Historical Provider LAB BLOOD ORDERABLES Yumi l Result * Hepatitis C Antibody (04/27/2022) External Hepatitis C Antibody (HCV Ab) Negative Blood Venous blood specimen / Unknown [facility] Provider MD LAB BLOOD ORDERABLES Yumi l Result * Pap Test (09/13/2021) External AIR CREW MEMBER Cytology normal Swab Vaginal and cervical cytologic material / Unknown [facility] Provider LAB CYTOLOGY ORDERABLES F inal Result from Last 3 Months or Most Recently Relevant to Health Maintenance Additional Health Concerns Active Problems Noted Date Diagnosed Date CPM S22 PP LABOR (OBSTETRICS) 10/01/2022 Insurance [employer] Care Teams First Cook Relationship Specialty Start Date End Date Polina Brantley APRN [address] [facility] [address] [place] [address] PCP - General 10/04/22 Dwain Nye MD [address] [place] [address] [place] [address] 09/11/22
[2025-03-19 08:13] LABS: Hematocrit 38.0 % (37.0-47.0); Hemoglobin 12.7 g/dL (12.2-16.2); Immature Granulocytes % 0.3 %; Mean Corpuscular HGB Conc 33.4 g/dL (31.8-35.4); Mean Corpuscular Hemoglobin 30.5 pg (27.0-31.2); Mean Corpuscular Volume 91.1 fl (81-99); Nucleated Red Blood Cells % 0 %; Platelet Count 286 K/mm3 (142-424); Red Blood Count 4.17 M/mm3 (4.20-5.40); Red Cell Distribution Width-SD 43.7 fL; White Blood Count 7.8 K/mm3 (4.8-10.8)
[2025-03-19 09:17] LABS: Alanine Aminotransferase 21 U/L (12-78); Albumin Level 4.4 g/dl (3.5-5.0); Albumin/Globulin Ratio 1.8 (1.1-1.8); Alkaline Phosphatase 83 U/L (38-126); Anion Gap 14.7 mEq/L (5-15); Aspartate Amino Transferase 19 U/L (14-36); Bilirubin,Total 0.3 mg/dl (0.2-1.3); Blood Urea Nitrogen 9 mg/dl (7-17); Calcium 9.6 mg/dl (8.4-10.2); Carbon Dioxide 24 mmol/L (22.0-30.0); Chloride 105 mmol/L (98-107); Cholesterol 165 mg/dl (140-200); Creatinine,Serum 0.80 mg/dl (0.52-1.04); Estimated Glomerular Filt Rate 83 ml/min (>60); GFR (African American) 101 ML/MIN (>60); Globulin 2.5 g/dL (1.3-3.2); Glucose 103 mg/dl (74-100); HDL Cholesterol 39 mg/dl (40-60); Iron 72 ug/dL (37-170); Magnesium 1.8 mg/dl (1.6-2.3); Potassium 4.7 mmoL/L (3.5-5.1); Sodium 139 mmol/L (136-145); Total Protein,Serum 6.9 g/dl (6.3-8.2); Triglycerides 190 mg/dl (30-150)
[2025-03-19 09:35] LABS: 25-OH Vitamin D, Total 40.5 ng/mL (30-100)
[2025-03-19 09:42] LABS: Hemoglobin A1C 6.4 % (4.0-6.0)
[2025-03-19 09:47] LABS: Thyroid Stimulating Hormone 2.54 uIU/mL (0.465-4.68)
[2025-03-19 10:06] LABS: Vitamin B12 401 pg/mL (239-931)
[2025-03-19 10:08] LABS: Total Iron Binding Capacity 342 ug/dL (265-497)
[2025-03-19 10:35] LABS: Ferritin 13.1 ng/ml (6.24-137)
== END 2025-03-19 23:59 | disposition home or self-care (01) ==
LOC: LAB 08:00
PROVIDERS: PCP Physician Assistant; Visit Provider Physician Assistant
DX: R42 Dizziness and giddiness (principal); R53.83 Other fatigue; Z86.39 Personal history of other endocrine, nutritional and metabolic disease; Z87.898 Personal history of other specified conditions; Z83.438 Family history of other disorder of lipoprotein metabolism and other lipidemia
CPT/HCPCS: 36415; 80053; 80061; 82306; 82607; 82728; 83036; 83540; 83550; 83735; 84443; 85025

== ENCOUNTER → 2025-04-09 14:44 | Outpatient (CLI) | payer MEDICAID, SELFPAY ==
--- OUTSIDE RECORDS SUMMARY | 2025-04-09 14:47 | XMS_ITS | Clinical Summary ---
Author Organization [facility] Address [address] [place] [address] Care Team Providers Care Clinical Care Coordinator Name Role Phone Dwain Nye MD Unavailable [phone] Polina Brantley APRN Primary Care Provider [phone] Allergies Active Allergy Reactions Criticality Noted Date [...] Recorded Patient Health Questionnaire-2 Score 2 09/14/2023 [place] Depression Scale Answer Date Recorded [place] Depression Scale Total 2 12/13/2022 The thought [...] - 19+ 3-dose series) 2011 [facility]-HPV/Cotest 2022 [id number] Vaccine ( - 2023- season) 2024 05/06/2021, [...] Negative Blood Venous blood specimen / Unknown [facility] Provider MD LAB BLOOD ORDERABLES Yumi l Result * Pap Test (09/13/2021) External SANITOR Cytology normal Swab Vaginal and cervical cytologic material / Unknown [facility] Provider LAB CYTOLOGY ORDERABLES F inal Result from Last 3 Months or Most Recently Relevant to Health Maintenance Additional Health Concerns Active Problems Noted Date Diagnosed Date CPM S22 PP LABOR (OBSTETRICS) 10/01/2022 Insurance [employer] Care Teams Clinical Care Coordinator Relationship Specialty Start Date End Date Polina Brantley APRN [address] [facility] [address] [place] [address] PCP - General 10/04/22 Dwain Nye MD [address] [place] [address] [place] [address] 09/11/22
== END ==
LOC: SL 14:45
PROVIDERS: PCP Physician Assistant; Visit Provider Physician Assistant
DX: G47.33 Obstructive sleep apnea (adult) (pediatric) (principal); E66.9 Obesity, unspecified; G47.10 Hypersomnia, unspecified; G47.36 Sleep related hypoventilation in conditions classified elsewhere
CPT/HCPCS: G0399

== ENCOUNTER 2025-04-22 13:01 | Outpatient (CLI) | payer MEDICAID, SELFPAY ==
--- OUTSIDE RECORDS SUMMARY | 2025-04-22 13:04 | XMS_ITS | Clinical Summary ---
Author Organization [facility] Address [address] [place] [address] Care Team Providers Care Surgical Services Asst Name Role Phone Dwain Nye MD Unavailable [phone] Polina Brantley APRN Primary Care Provider [phone] Allergies Active Allergy Reactions Criticality Noted Date [...] Recorded Patient Health Questionnaire-2 Score 2 09/14/2023 [place] Depression Scale Answer Date Recorded [place] Depression Scale Total 2 12/13/2022 The thought [...] of 2 - 13+ 2-dose series) 2005 [facility]- SDOH Screenings 2010 [facility]-Adult SDOH Screenings 2010 [facility]-Hepatitis B Vaccines (1 of 3 - 19+ 3-dose series) 2011 HPV Vaccines (1 - 3-dose SCD M series) 2019 [facility]-HPV/Cotest 2022 [id number] Vaccine (2023-25 season) 2024 05/06/2021, 04/08/2021 [facility]-Cervical Cancer Screening [...] Negative Blood Venous blood specimen / Unknown [facility] Provider LAB BLOOD ORDERABLES Yumi l Result * Pap Test (09/13/2021) External REMOTE SENSING ENGINEER Cytology normal Swab Vaginal and cervical cytologic material / Unknown [facility] Provider LAB CYTOLOGY ORDERABLES F inal Result from Last 3 Months or Most Recently Relevant to Health Maintenance Additional Health Concerns Active Problems Noted Date Diagnosed Date CPM S22 PP LABOR (OBSTETRICS) 10/01/2022 Insurance [employer] Care Teams Surgical Services Asst Relationship Specialty Start Date End Date Polina Brantley APRN [address] [facility] [address] [facility] [place] [address] PCP - General 10/04/22 Dwain Nye MD [address] [place] [id number] 09/11/22
== END 2025-04-22 23:59 | disposition home or self-care (01) ==
LOC: DIETICIAN 13:02
PROVIDERS: PCP Physician Assistant; Visit Provider Nurse Practitioner Family
DX: R73.03 Prediabetes (principal)
CPT/HCPCS: 97802

== ENCOUNTER 2025-04-24 06:32 | Day surgery (SDC) | payer MEDICAID, SELFPAY ==
[2025-04-22 13:58] VITALS: BMI 35.9
[2025-04-24 07:21] VITALS: BP 116/57; PULSE 73; RESP 18; TEMP 36.4; O2SAT 96
[2025-04-24 07:33] LABS: POC Glucose,Bedside 110 (70-110)
[2025-04-24] MEDS: LIDOCAINE 1% 20ML MDV 20 ML (07:35)
--- NOTE | 2025-04-24 07:50 | EXP.OP.NOTE ---
Date of procedure: 04/24/25 Pre-op Diagnosis:: Right scalp skin lesions (4 mm medial right scalp skin lesion and 5 mm lateral right scalp skin lesion) Post-op Diagnosis:: Same Procedure performed:: Punch biopsy of 5 mm lateral right scalp skin lesion Punch biopsy of 4 mm medial right scalp skin lesion Surgeon:: Keaton Cox MD Anesthesia: local Estimated blood loss (mL): 5 Operative findings:: Lesions excised in toto via punch biopsy Operative note:: After informed consent was obtained the patient was taken to the procedure room. Her right scalp region was prepped and draped in a sterile fashion. After infiltration local anesthetic a 4 mm punch was utilized to remove the medial right scalp skin lesion. A 5 mm punch was utilized to remove the lateral right scalp skin lesion. Electrocautery was utilized to achieve hemostasis. Dressings were applied and the patient was discharged home in stable condition. Condition: stable Disposition: no change Specimens:: 4 mm right medial scalp skin lesion 5 mm right lateral scalp skin lesion Complications:: No immediate
[2025-04-24 07:51] VITALS: BP 119/67; PULSE 67; RESP 17; TEMP 36.6; O2SAT 99
== END 2025-04-24 08:06 | disposition home or self-care (01) ==
PROVIDERS: PCP Nurse Practitioner Family; Visit Provider Surgery
PROC: (CPT 11421; principal; 2025-04-24 07:30)
DX: D22.4 Melanocytic nevi of scalp and neck (principal); F17.210 Nicotine dependence, cigarettes, uncomplicated
CPT/HCPCS: 11421; 82962; J2003